=== PATIENT | female | born 1930 | race Caucasian/White ===

== ENCOUNTER 2018-04-17 08:41 | Inpatient (IN) | payer MEDICARE ==
[2018-04-17] MEDS ORDERED: SODIUM CHLORIDE 0.9% 500 ML IV ONE ×2 (09:23→19:12)
--- NOTE | 2018-04-17 09:26 | ED ---
General Adult HPI - General Chief complaint: Headache Stated complaint: nausea, headache, not acting herself Time Seen by Provider: 04/17/18 09:00 Source: patient, family, RN notes reviewed Mode of arrival: wheelchair Limitations: no limitations - History of Present Illness Initial comments: This is an 88-year-old female presents emergency Department with family for concerns of altered mental status, urinary incontinence and diarrhea. Patient does have some underlying dementia has been declining at home patient was found still in bed this morning which is out of the usual for she was incontinent of her urine and complaint of headache and nausea. Patient does have ongoing incontinence but seems to be worsened usual. They did state that she had a urinary tract infection a few weeks ago but she did not take antibiotics as directed. There's been no reported fevers no chills. Patient sees Dr. Alford and Dr. Cunningham neurologist. Family is concerned that she cannot take care of herself at home. complaint of frontal headache was given aspirin which has improved her symptoms. She states her nausea has resolved. Patient's been having ongoing diarrhea not addressed by PCP. Patient reports right sided rib pain after a fall. - Related Data Home Medications Medication Instructions Recorded Confirmed Ciprofloxacin HCl [Cipro] 500 mg PO Q12HR 04/17/18 04/17/18 Verapamil HCl [Verapamil ER] 240 mg PO DAILY 04/17/18 04/17/18 Allergies Allergy/AdvReac Type Severity Reaction Status Date / Time No Known Allergies Allergy Verified 04/17/18 09:35 Review of Systems ROS Statement: Those systems with pertinent positive or pertinent negative responses have been documented in the HPI. ROS Other: All systems not noted in ROS Statement are negative. Past Medical History Past Medical History: Hypertension History of Any Multi-Drug Resistant Organisms: None Reported Past Surgical History: No Surgical Hx Reported Past Psychological History: No Psychological Hx Reported Smoking Status: Never smoker Past Alcohol Use History: None Reported Past Drug Use History: None Reported General Exam Limitations: no limitations General appearance: alert, in no apparent distress Head exam: Present: atraumatic, normocephalic, normal inspection Eye exam: Present: normal appearance, PERRL, EOMI. Absent: scleral icterus, conjunctival injection, periorbital swelling ENT exam: Present: normal exam, normal oropharynx, mucous membranes moist Neck exam: Present: normal inspection, full ROM. Absent: tenderness, meningismus, lymphadenopathy Respiratory exam: Present: normal lung sounds bilaterally, chest wall tenderness. Absent: respiratory distress, wheezes, rales, rhonchi, stridor Cardiovascular Exam: Present: regular rate, normal rhythm, normal heart sounds. Absent: systolic murmur, diastolic murmur, rubs, gallop, clicks GI/Abdominal exam: Present: soft, normal bowel sounds. Absent: distended, tenderness, guarding, rebound, rigid Extremities exam: Present: normal inspection, full ROM, normal capillary refill. Absent: tenderness, pedal edema, joint swelling, calf tenderness Back exam: Present: full ROM, tenderness Neurological exam: Present: alert, oriented X3, CN II-XII intact, reflexes normal. Absent: motor sensory deficit Skin exam: Present: warm, dry, intact, normal color. Absent: rash Course Vital Signs 04/17/18 04/17/18 08:44 11:38 Temperature 97.5 F L Pulse Rate 106 H 88 Respiratory 16 18 Rate Blood Pressure 128/87 176/121 O2 Sat by Pulse 95 95 Oximetry EKG Findings - EKG Comments: EKG Findings:: EKG performed at 10:20 normal sinus rhythm with a rate of 87 OK 158 QRS 78 QT/QTC 400/481 Medical Decision Making - Medical Decision Making 88-year-old female presented for weakness Salter mental status. Patient has a history of dementia. Patiently admitted for cardiac enzymes, possible [facility]. - Lab Data Result diagrams: 04/17/18 09:39 04/17/18 09:39 Lab Results 04/17/18 04/17/18 04/17/18 Range/Units 09:39 09:39 09:39 WBC (3.8-10.6) k/uL RBC (3.80-5.40) m/uL Hgb (11.4-16.0) gm/dL Hct (34.0-46.0) % MCV (80.0-100.0) fL MCH (25.0-35.0) pg MCHC (31.0-37.0) g/dL RDW (11.5-15.5) % Plt Count (150-450) k/uL Neutrophils % % Lymphocytes % % Monocytes % % Eosinophils % % Basophils % % Neutrophils # (1.3-7.7) k/uL Lymphocytes # (1.0-4.8) k/uL Monocytes # (0-1.0) k/uL Eosinophils # (0-0.7) k/uL Basophils # (0-0.2) k/uL Sodium 145 (137-145) mmol/L Potassium 4.1 (3.5-5.1) mmol/L Chloride 106 (98-107) mmol/L Carbon Dioxide 22 (22-30) mmol/L Anion Gap 17 mmol/L BUN 13 (7-17) mg/dL Creatinine 0.89 (0.52-1.04) mg/dL Est GFR (CKD-EPI)AfAm 67 (>60 ml/min/1.73 sqM) Est GFR (CKD-EPI)NonAf 58 (>60 ml/min/1.73 sqM) Glucose 117 H (74-99) mg/dL Plasma Lactic Acid Deshaun 1.5 (0.7-2.0) mmol/L Calcium 9.5 (8.4-10.2) mg/dL Magnesium 1.8 (1.6-2.3) mg/dL Total Bilirubin 1.0 (0.2-1.3) mg/dL AST 30 (14-36) U/L ALT 21 (9-52) U/L Alkaline Phosphatase 69 (38-126) U/L Troponin I 0.235 H* (0.000-0.034) ng/mL Total Protein 6.9 (6.3-8.2) g/dL Albumin 4.2 (3.5-5.0) g/dL Lipase 55 (23-300) U/L Urine Color Urine Appearance (Clear) Urine pH (5.0-8.0) Ur Specific Stevens (1.001-1.035) Urine Protein (Negative) Urine Glucose (UA) (Negative) Urine Ketones (Negative) Urine Blood (Negative) Urine Nitrite (Negative) Urine Bilirubin (Negative) Urine Urobilinogen (<2.0) mg/dL Ur Leukocyte Esterase (Negative) Urine RBC (0-5) /hpf Urine WBC (0-5) /hpf Ur Squamous Epith Cells (0-4) /hpf Urine Mucus (None) /hpf 04/17/18 04/17/18 Range/Units 09:39 10:56 WBC 7.9 (3.8-10.6) k/uL RBC 5.84 H (3.80-5.40) m/uL Hgb 15.8 (11.4-16.0) gm/dL Hct 48.4 H (34.0-46.0) % MCV 82.9 (80.0-100.0) fL MCH 27.1 (25.0-35.0) pg MCHC 32.7 (31.0-37.0) g/dL RDW 14.7 (11.5-15.5) % Plt Count 212 (150-450) k/uL Neutrophils % 78 % Lymphocytes % 15 % Monocytes % 5 % Eosinophils % 1 % Basophils % 0 % Neutrophils # 6.2 (1.3-7.7) k/uL Lymphocytes # 1.2 (1.0-4.8) k/uL Monocytes # 0.4 (0-1.0) k/uL Eosinophils # 0.1 (0-0.7) k/uL Basophils # 0.0 (0-0.2) k/uL Sodium (137-145) mmol/L Potassium (3.5-5.1) mmol/L Chloride (98-107) mmol/L Carbon Dioxide (22-30) mmol/L Anion Gap mmol/L BUN (7-17) mg/dL Creatinine (0.52-1.04) mg/dL Est GFR (CKD-EPI)AfAm (>60 ml/min/1.73 sqM) Est GFR (CKD-EPI)NonAf (>60 ml/min/1.73 sqM) Glucose (74-99) mg/dL Plasma Lactic Acid Deshaun (0.7-2.0) mmol/L Calcium (8.4-10.2) mg/dL Magnesium (1.6-2.3) mg/dL Total Bilirubin (0.2-1.3) mg/dL AST (14-36) U/L ALT (9-52) U/L Alkaline Phosphatase (38-126) U/L Troponin I (0.000-0.034) ng/mL Total Protein (6.3-8.2) g/dL Albumin (3.5-5.0) g/dL Lipase (23-300) U/L Urine Color Yellow Urine Appearance Clear (Clear) Urine pH 6.5 (5.0-8.0) Ur Specific Stevens 1.011 (1.001-1.035) Urine Protein 1+ H (Negative) Urine Glucose (UA) Negative (Negative) Urine Ketones Trace H (Negative) Urine Blood Negative (Negative) Urine Nitrite Negative (Negative) Urine Bilirubin Negative (Negative) Urine Urobilinogen <2.0 (<2.0) mg/dL Ur Leukocyte Esterase Negative (Negative) Urine RBC <1 (0-5) /hpf Urine WBC 1 (0-5) /hpf Ur Squamous Epith Cells <1 (0-4) /hpf Urine Mucus Rare H (None) /hpf Disposition Clinical Impression: Elevated troponin, Altered mental status, Weakness, Diarrhea, Dementia Disposition: ADMITTED IP TO THIS HOSP Condition: Stable Referrals: Rico Alford MD [Primary Care Provider] - 1-2 days
[2018-04-17 09:57] LABS: Basophils % (A) 0 %; Eosinophils # (A) 0.1 k/uL (0-0.7); Eosinophils % (A) 1 %; HCT 48.4 % (34.0-46.0); HGB 15.8 gm/dL (11.4-16.0); Lymphocytes # (A) 1.2 k/uL (1.0-4.8); Lymphocytes % (A) 15 %; MCH 27.1 pg (25.0-35.0); MCHC 32.7 g/dL (31.0-37.0); MCV 82.9 fL (80.0-100.0); Mean Platelet Volume 9.6; Monocytes # (A) 0.4 k/uL (0-1.0); Monocytes % (A) 5 %; Neutrophils # (A) 6.2 k/uL (1.3-7.7); Neutrophils % (A) 78 %; Platelet Count 212 k/uL (150-450); RBC 5.84 m/uL (3.80-5.40); RDW 14.7 % (11.5-15.5); WBC 7.9 k/uL (3.8-10.6)
[2018-04-17 10:08] LABS: Albumin 4.2 g/dL (3.5-5.0); Calcium 9.5 mg/dL (8.4-10.2); Magnesium 1.8 mg/dL (1.6-2.3); Total Protein 6.9 g/dL (6.3-8.2)
[2018-04-17 10:12] LABS: Potassium 4.1 mmol/L (3.5-5.1)
--- NOTE | 2018-04-17 10:30 | XR ---
EXAMINATION TYPE: XR chest 2V DATE OF EXAM: 04/17/2018 COMPARISON: 03/11/2012 INDICATION: Cough, pain TECHNIQUE: Frontal and lateral views of the chest are obtained. FINDINGS: The heart size is normal. The pulmonary vasculature is normal. There may be a posterior right upper lung density. This could be summation density with overlying rib s. Consider additional evaluation with CT with the patient is stable. No suspicious infiltrates are o therwise identified.. IMPRESSION: 1. Acute pulmonary process not radiographically apparent. 2. There may be a posterior medial right upper lobe nodule. CT chest is recommended when the patient is stable.
--- NOTE | 2018-04-17 10:38 | CT ---
EXAMINATION TYPE: CT brain wo con DATE OF EXAM: 04/17/2018 COMPARISON: NONE HISTORY: Weakness and generalized pain CT DLP: 1144.7 mGycm Automated exposure control for dose reduction was used. TECHNIQUE: CT scan of the head is performed without contrast. FINDINGS: There is no acute intracranial hemorrhage or midline shift identified. There is diffuse v entricular and sulcal prominence consistent with diffuse age-related cerebral atrophy. There is low- attenuation in the periventricular white matter consistent with chronic small vessel ischemic change. There are dystrophic calcifications within the basal ganglia. Old lacunar injury seen of the anterio r limb of the right internal capsule and of the right lentiform nucleus. Atherosclerosis is noted at the intracranial vasculature. The globes are intact and the visualized sinuses are clear. Scleral c alcifications are seen bilaterally. IMPRESSION: No acute intracranial process. Extensive confluent white matter changes and age-related cerebral volume loss.
[2018-04-17 11:16] LABS: Appearance,Urine Clear (Clear); Bilirubin,Urine Negative (Negative); Blood,Urine Negative (Negative); Color,Urine Yellow; Glucose,Urine (UA) Negative (Negative); Ketones,Urine Trace (Negative); Leukocyte Esterase,Urine Negative (Negative); Mucus,Urine Rare /hpf; Nitrite,Urine Negative (Negative); PH, Urine 6.5 (5.0-8.0); Protein,Urine 1+ (Negative); RBC,Urine <1 /hpf (0-5); Specific Gravity,Urine 1.011 (1.001-1.035); Squamous Epithelial Cell,Urine <1 /hpf (0-4); Urobilinogen,Urine <2.0 mg/dL (<2.0); WBC,Urine 1 /hpf (0-5)
[2018-04-17] MEDS ORDERED: cloNIDine HCL 0.1 MG TAB PO STA (11:27)
[2018-04-17] MEDS ORDERED: ONDANSETRON 4 MG/2 ML VIAL IVP STA (11:43)
[2018-04-17] MEDS ORDERED: NITROGLYCERIN SL TABS 0.4 MG TAB SUBLINGUAL PRN (11:43)
[2018-04-17] MEDS ORDERED: KETOROLAC 30 MG/ML 1 ML VIAL IVP STA (11:43)
--- NOTE | 2018-04-17 15:23 | P.HPIM ---
History of Present Illness this is a pleasant 88 years old female with past medical history of hypertension , urinary incontinence, recent UTI, cataract, hyperlipidemia, and dementia, patient brought to the emergency room by the family for concerning altered mental status, with some diarrhea. Patient was on Cipro recently for UTI. Bed comfortable fully awake and can answer questions regarding her health. Patient states "I feels sick to my stomach but I don't have pain" associated with nausea but no vomiting. Patient denies chest pain, dyspnea. No abdominal pain , patient herself denies diarrhea and states she didn't have any bowel movement today. As per documentation family is concerned that they cannot take care of herself at home and he wanted to talk to social worker assistant for other options In the ED patient was found to have positive troponin 0.235, creatinine 0.89, GFR is 58, WBC 7.9, hemoglobin 15.8, UA is negative for infection, chest x-ray is negative for acute pulmonary process, however there is suspicion of right upper lobe nodule on CT of the head shows negative for acute intracranial process with extensive age-related volume loss, EKG shows sinus rhythm at 87 bpm with no significant ST-T abnormality, and LVH Review of Systems CONSTITUTIONAL: No fever, no malaise, no fatigue. HEENT: No recent visual problems or hearing problems. Denied any sore throat. CARDIOVASCULAR: No orthopnea, PND, no palpitations, no syncope. PULMONARY: No shortness of breath, no cough, no hemoptysis. GASTROINTESTINAL: No diarrhea, no nausea, no vomiting, no abdominal pain. Normoactive bowel sounds. NEUROLOGICAL: No headaches, no weakness, no numbness. HEMATOLOGICAL: Denies any bleeding or petechiae. GENITOURINARY: Denies any burning micturition, frequency, or urgency. MUSCULOSKELETAL/RHEUMATOLOGICAL: Denies any joint pain, swelling, or any muscle pain. ENDOCRINE: Denies any polyuria or polydipsia. 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 History of Any Multi-Drug Resistant Organisms: None Reported Past Surgical History: No Surgical Hx Reported Additional Past Surgical History / Comment(s): One eye cataract removal (unsure laterality), exploratory laparotomy for teratoma tumor. Past Anesthesia/Blood Transfusion Reactions: Postoperative Nausea & Vomiting ( PONV) Smoking Status: Never smoker - Past Family History Father History Unknown: Yes Mother Family Medical History: Congestive Heart Failure (CHF), Diabetes Mellitus Medications and Allergies Home Medications Medication Instructions Recorded Confirmed Type Ciprofloxacin HCl [Cipro] 500 mg PO Q12HR 04/17/18 04/17/18 History Verapamil HCl [Verapamil ER] 240 mg PO DAILY 04/17/18 04/17/18 History Allergies Allergy/AdvReac Type Severity Reaction Status Date / Time No Known Allergies Allergy Verified 04/17/18 09:35 Physical Exam Vitals: Vital Signs Temp Pulse Resp BP Pulse Ox 04/17/18 13:12 83 18 179/99 91 L 04/17/18 12:35 85 18 188/109 92 L 04/17/18 11:38 88 18 176/121 95 04/17/18 09:00 86 18 197/108 98 04/17/18 08:44 97.5 F L 106 H 16 128/87 95 Intake and Output 04/16/18 04/17/18 04/17/18 22:59 06:59 14:59 Other: Weight 61.235 kg -GENERAL: The patient is alert and oriented x2 to place and person, when asked where are you now she replaced and in [facility] emergency room. And when I ask her about the date she stated I don't paid attention to dates but she thought it was 1980. She knew the name of the president, not in any acute distress. Well developed, well nourished. slurred speach. HEENT: Pupils are round and equally reacting to light. EOMI. No scleral icterus. No conjunctival pallor. Normocephalic, atraumatic. No pharyngeal erythema. No thyromegaly. CARDIOVASCULAR: S1 and S2 present. No murmurs, rubs, or gallops. PULMONARY: Chest is clear to auscultation, no wheezing or crackles. ABDOMEN: Soft, nontender, nondistended, normoactive bowel sounds. No palpable organomegaly. MUSCULOSKELETAL: No joint swelling or deformity. -EXTREMITIES: No cyanosis, clubbing, or pedal edema. chronic left hemiplagia . her left foot moves in full ROM actively and passively NEUROLOGICAL: Gross neurological examination did not reveal any focal deficits. SKIN: No rashes. Results CBC & Chem 7: 04/17/18 09:39 04/17/18 09:39 Labs: Abnormal Lab Results - Last 24 Hours (Table) 04/17/18 04/17/18 04/17/18 Range/Units 09:39 09:39 09:39 RBC 5.84 H (3.80-5.40) m/uL Hct 48.4 H (34.0-46.0) % Glucose 117 H (74-99) mg/dL Troponin I 0.235 H* (0.000-0.034) ng/mL Urine Protein (Negative) Urine Ketones (Negative) Urine Mucus (None) /hpf 04/17/18 Range/Units 10:56 RBC (3.80-5.40) m/uL Hct (34.0-46.0) % Glucose (74-99) mg/dL Troponin I (0.000-0.034) ng/mL Urine Protein 1+ H (Negative) Urine Ketones Trace H (Negative) Urine Mucus Rare H (None) /hpf Thrombosis Risk Factor Assmnt - Choose All That Apply Any of the Below Risk Factors Present?: Yes Other Risk Factors: Yes Each Risk Factor Represents 3 Points: Age 75 years or older Other congenital or acquired thrombophilia - If yes, enter type in comment: No Thrombosis Risk Factor Assessment Total Risk Factor Score: 3 Thrombosis Risk Factor Assessment Level: Moderate Risk Assessment and Plan Plan: -Altered mental status,on the top of her dementia. It could be multifactorial related to her dementia, positive troponin, recent infection. -Positive troponin, associated with stomach upset. patient is already on aspirin. We'll check echocardiogram. Cardiology consult is called -Possible diarrhea, she has recent use of antibiotics Cipro. Check for C. diff -Recent UTI, UA is negative for infection. It looks resolved -Pulmonary nodules, follow-up as an outpatient DVT prophylaxis, heparin GI prophylaxis Pepcid Prognosis is guarded given the complex medical comorbidities and advanced age
[2018-04-17 16:20] LABS: Creatine Kinase MB 1.9 ng/mL (0.0-2.4)
[2018-04-17 16:27] LABS: Troponin I 0.222 ng/mL (0.000-0.034)
[2018-04-17] MEDS ORDERED: LABETALOL 200 MG TAB PO STA (17:57)
[2018-04-17] MEDS: HEPARIN SODIUM,PORCINE 5,000 UNIT/ML 1 ML VIAL SQ SCH (20:37)
[2018-04-17 20:51] LABS: Calcium 8.6 mg/dL (8.4-10.2); Magnesium 1.7 mg/dL (1.6-2.3); Potassium 3.3 mmol/L (3.5-5.1)
[2018-04-17] MEDS ORDERED: FAMOTIDINE 20 MG/2 ML VIAL IV SCH (21:00)
[2018-04-17 21:03] LABS: Creatine Kinase MB 1.3 ng/mL (0.0-2.4)
[2018-04-17 21:10] LABS: Troponin I 0.224 ng/mL (0.000-0.034)
[2018-04-18 06:20] LABS: Basophils % (A) 1 %; Eosinophils # (A) 0.1 k/uL (0-0.7); Eosinophils % (A) 1 %; HCT 37.8 % (34.0-46.0); HGB 12.4 gm/dL (11.4-16.0); Lymphocytes # (A) 1.3 k/uL (1.0-4.8); Lymphocytes % (A) 26 %; MCH 27.4 pg (25.0-35.0); MCHC 32.8 g/dL (31.0-37.0); MCV 83.7 fL (80.0-100.0); Mean Platelet Volume 9.1; Monocytes # (A) 0.3 k/uL (0-1.0); Monocytes % (A) 7 %; Neutrophils # (A) 3.1 k/uL (1.3-7.7); Neutrophils % (A) 63 %; Platelet Count 175 k/uL (150-450); RBC 4.51 m/uL (3.80-5.40); RDW 14.8 % (11.5-15.5); WBC 4.8 k/uL (3.8-10.6)
[2018-04-18 06:22] LABS: Albumin 2.9 g/dL (3.5-5.0); Bilirubin, Delta 0.1 mg/dL (0.0-0.2); Bilirubin,Unconjugated 0.3 mg/dL (0.0-1.1); Calcium 8.9 mg/dL (8.4-10.2); Potassium 3.7 mmol/L (3.5-5.1); Total Bilirubin 0.4 mg/dL (0.2-1.3); Total Protein 4.9 g/dL (6.3-8.2)
[2018-04-18] MEDS: ASPIRIN 325 MG TAB PO SCH (08:06)
[2018-04-18] MEDS: HEPARIN SODIUM,PORCINE 5,000 UNIT/ML 1 ML VIAL SQ SCH ×2 (08:06→20:57)
--- NOTE | 2018-04-18 08:09 | CONS ---
CONSULTATION CHIEF COMPLAINT: 1. Elevated troponin. 2. Cardiac arrhythmia. Seema is an 88-year-old lady with history of hypertension, urinary incontinence, dyslipidemia, and apparently dementia who was brought into hospital by family as they found her kept unwell home. She apparently has altered mental status and family is looking for placement. Her troponins are mildly elevated at 0.2 and her creatinine which was normal on admission had become elevated at 1.3. The patient was in sinus rhythm with sinus tachycardia when she first came. Her blood pressures were elevated. She was given 200 mg of intravenous labetalol following which she became hypotensive and somewhat bradycardic. Following that, she received fluid bolus and the bradycardia has resolved. She has an EKG that shows atrial fibrillation, but it was transient and resolved on its own and all her rhythm strips show that she is in sinus rhythm. At the time of my evaluation this morning, she appears comfortable at rest. She is having a meaningful conversation. Denies chest pain or difficulty in breathing. PAST MEDICAL HISTORY: Past medical history is significant for hypertension, dyslipidemia, dementia. MEDICATIONS: Medications at home included verapamil ER 240, ciprofloxacin. ALLERGIES: Allergies are as charted. FAMILY HISTORY: Negative for premature coronary artery disease. SOCIAL HISTORY: Has dementia, is not able to take care of herself at home. REVIEW OF SYSTEMS: HEENT is significant for confusion. CONSTITUTIONAL: Negative for fever, malaise, fatigue. CARDIOVASCULAR: Negative. RESPIRATORY: Negative. GI: Significant for diarrhea. NEUROLOGICAL: Negative. HEMATOLOGICAL: Negative. GENITOURINARY: Significant for urinary incontinence. MUSCULOSKELETAL: Significant for joint pains. ENDOCRINE: Negative. PHYSICAL EXAMINATION: On exam she is comfortable at rest. Afebrile. Heart rate is 57 beats per minute. Blood pressure is 160/90, respiratory rate is 18, O2 sat is 92% on room air. There is no jugular venous distention. Carotid upstroke is diminished. There is no bruit. Chest exam reveals diminished air entry at the bases. Heart exam reveals first and second heart sounds and a systolic murmur at the apex. Abdomen is soft. Exam of extremities did not reveal any edema. Peripheral pulses are felt. LABS: Labs show that her creatinine elevated at 1.3. Troponins are at 0.2, 0.2 and 0.2. Hemoglobin is 12.4. EKGs: Admission EKG showed sinus rhythm with PACs, all the rhythm strips show that she is in sinus rhythm. She had one EKG where there appears what appears like junctional rhythm and this happened around the same time that she received a large dose of intravenous labetalol. ASSESSMENT: 1. Uncontrolled hypertension. 2. Elevated troponin. 3. Dementia. PLAN: I will obtain a 2-D echo on her to evaluate her LV function. Stop the Calan SR that she is on. Put her on amlodipine 10 mg daily for blood pressure control. If necessary, if the creatinine is stable, we may consider AL inhibitors. The elevated troponin is of unclear clinical significance and does not require further evaluation at this time. We will continue to watch her on telemetry. If she has any documented episodes of atrial fibrillation, we will consider anticoagulation. BRYANNA / JUSTINN: [id number] /
--- NOTE | 2018-04-18 10:47 | P.PN ---
Subjective this is a pleasant 88 years old female with past medical history of hypertension , urinary incontinence, recent UTI, cataract, hyperlipidemia, and dementia, patient brought to the emergency room by the family for concerning altered mental status, with some diarrhea. Patient was on Cipro recently for UTI. Bed comfortable fully awake and can answer questions regarding her health. Patient states "I feels sick to my stomach but I don't have pain" associated with nausea but no vomiting. Patient denies chest pain, dyspnea. No abdominal pain , patient herself denies diarrhea and states she didn't have any bowel movement today. As per documentation family is concerned that they cannot take care of herself at home and he wanted to talk to social welfare administrator for other options In the ED patient was found to have positive troponin 0.235, creatinine 0.89, GFR is 58, WBC 7.9, hemoglobin 15.8, UA is negative for infection, chest x-ray is negative for acute pulmonary process, however there is suspicion of right upper lobe nodule on CT of the head shows negative for acute intracranial process with extensive age-related volume loss, EKG shows sinus rhythm at 87 bpm with no significant ST-T abnormality, and LVH Review of Systems Objective - Vital Signs Vital signs: Vital Signs Temp 97.2 F L 04/18/18 07:55 Pulse 55 L 04/18/18 08:00 Resp 16 04/18/18 07:55 BP 166/79 04/18/18 07:55 Pulse Ox 92 L 04/18/18 07:55 Intake & Output 04/17/18 04/18/18 04/18/18 18:59 06:59 18:59 Weight 61.235 kg 63 kg Other: Voiding Method Bedside Commode Bedside Commode Toilet Diaper Diaper Bedside Commode Diaper # Voids 0 1 # Bowel Movements 1 - Exam -GENERAL: The patient is alert and oriented x2 to place and person, when asked where are you now she replaced and in [facility] emergency room. And when I ask her about the date she stated I don't paid attention to dates but she thought it was 1980. She knew the name of the president, not in any acute distress. Well developed, well nourished. slurred speach. HEENT: Pupils are round and equally reacting to light. EOMI. No scleral icterus. No conjunctival pallor. Normocephalic, atraumatic. No pharyngeal erythema. No thyromegaly. CARDIOVASCULAR: S1 and S2 present. No murmurs, rubs, or gallops. PULMONARY: Chest is clear to auscultation, no wheezing or crackles. ABDOMEN: Soft, nontender, nondistended, normoactive bowel sounds. No palpable organomegaly. MUSCULOSKELETAL: No joint swelling or deformity. -EXTREMITIES: No cyanosis, clubbing, or pedal edema. chronic left hemiplagia . her left foot moves in full ROM actively and passively NEUROLOGICAL: Gross neurological examination did not reveal any focal deficits. - Labs CBC & Chem 7: 04/18/18 05:38 04/18/18 05:38 Labs: Abnormal Lab Results - Last 24 Hours (Table) 04/17/18 04/17/18 04/17/18 Range/Units 09:39 10:56 15:36 Potassium (3.5-5.1) mmol/L Creatinine (0.52-1.04) mg/dL Glucose (74-99) mg/dL Troponin I 0.235 H* 0.222 H* (0.000-0.034) ng/mL Total Protein (6.3-8.2) g/dL Albumin (3.5-5.0) g/dL HDL Cholesterol (40-60) mg/dL Urine Protein 1+ H (Negative) Urine Ketones Trace H (Negative) Urine Mucus Rare H (None) /hpf 04/17/18 04/17/18 04/18/18 Range/Units 20:19 20:19 05:38 Potassium 3.3 L (3.5-5.1) mmol/L Creatinine 1.10 H 1.30 H (0.52-1.04) mg/dL Glucose 120 H (74-99) mg/dL Troponin I 0.224 H* (0.000-0.034) ng/mL Total Protein 4.9 L (6.3-8.2) g/dL Albumin 2.9 L (3.5-5.0) g/dL HDL Cholesterol 39 L (40-60) mg/dL Urine Protein (Negative) Urine Ketones (Negative) Urine Mucus (None) /hpf Microbiology - Last 24 Hours (Table) 04/17/18 10:56 Urine Culture - Preliminary Urine,Catheterized Assessment and Plan Plan: -Altered mental status,on the top of her dementia.it looks mild. It could be multifactorial related to her dementia, positive troponin, recent infection. -Positive troponin, associated with stomach upset. patient is already on aspirin. We'll check echocardiogram. Cardiology consult is appreciated and they recommend echo and telemetry. nitroglycerin topical. c/w tele -Possible diarrhea, she has recent use of antibiotics Cipro. resolved . -Recent UTI, UA is negative for infection. It looks resolved -Pulmonary nodules, follow-up as an outpatient. call pulmonary consult -HTN on norvasc 10 mg , add nitroglycerin topical -FROILAN: trending up cr 1.1 to 1.3, pt is on iv fluids. pt had episode of hypotension, pt complaining from urine retention with h/o urine incontinence , however she is able to pee this morning, C/w bladder scan . check US of renal system: pending DVT prophylaxis, heparin GI prophylaxis Pepcid PT/OT pending Prognosis is guarded given the complex medical comorbidities and advanced age
[2018-04-18] MEDS ORDERED: DEXTROSE 5%-0.45% NACL 1,000 ML IV SCH (11:00)
[2018-04-18] MEDS: NITROGLYCERIN OINT 1 INCH/GM PACKET TOPICAL SCH ×3 (11:38→23:36)
--- NOTE | 2018-04-18 11:51 | ECHOF ---
Referral Reason:-positive troponin MEASUREMENTS -------- HEIGHT: 167.6 cm WEIGHT: 61.2 kg BP: 158/93 IVSd: 1.0 cm (0.6 - 1.1) LVIDd: 3.9 cm (3.9 - 5.3) LVPWd: 1.0 cm (0.6 - 1.1) IVSs: 1.2 cm LVIDs: 2.3 cm LVPWs: 1.2 cm LAESV Index (A-L): 22.88 ml/m Ao Diam: 3.9 cm (2.0 - 3.7) AV Cusp: 1.8 cm (1.5 - 2.6) LA Diam: 2.5 cm (2.7 - 3.8) MV EXCURSION: 11.388 mm (> 18.000) MV EF SLOPE: 36 mm/s (70 - 150) EPSS: 0.9 cm MV E Chacho: 0.52 m/s MV DecT: 462 ms MV A [place]: 1.06 m/s MV E/A Ratio: 0.49 RAP: 5.00 mmHg RVSP: 24.21 mmHg FINDINGS -------- Sinus rhythm. This was a technically adequate study. The left ventricular size is normal. There is mild concentric left ventricular hypertrophy. Overa ll left ventricular systolic function is normal with, an EF between 55 - 60 %. The right ventricle is normal in size and function. Normal LA size by volume 22+/-6 ml/m2. The right atrium is normal in size. There is mild aortic valve sclerosis. There is no evidence of aortic regurgitation. There is no e vidence of aortic stenosis. The mitral valve leaflets are mildly thickened. There is trace mitral regurgitation. Trace tricuspid regurgitation present. Right ventricular systolic pressure is normal at < 35 mmHg. There is no evidence of pulmonary hypertension. Trace/mild (physiologic) pulmonic regurgitation. The aortic root size is borderline dilated to 3.7 cm. IVC Not well visulized. There is no pericardial effusion. CONCLUSIONS -------- 1. Sinus rhythm. 2. This was a technically adequate study. 3. The left ventricular size is normal. 4. There is mild concentric left ventricular hypertrophy. 5. Overall left ventricular systolic function is normal with, an EF between 55 - 60 %. 6. Normal LA size by volume 22+/-6 ml/m2. 7. There is mild aortic valve sclerosis. 8. The mitral valve leaflets are mildly thickened. 9. There is trace mitral regurgitation. 10. Trace tricuspid regurgitation present. 11. Right ventricular systolic pressure is normal at < 35 mmHg. 12. There is no evidence of pulmonary hypertension. 13. Trace/mild (physiologic) pulmonic regurgitation. 14. The aortic root size is borderline dilated to 3.7 cm. 15. IVC Not well visulized. 16. There is no pericardial effusion. BOMB LOADER: Avi Stark RDCS
--- NOTE | 2018-04-18 12:15 | US ---
EXAMINATION TYPE: US kidneys/renal and bladder DATE OF EXAM: 04/18/2018 COMPARISON: NONE CLINICAL HISTORY: up creatinine and urine retention . EXAM MEASUREMENTS: Right Kidney: 10.6 x 4.9 x 4.8 cm Left Kidney: 7.5 x 3.7 x 3.0 cm Right Kidney: 2 cysts noted, 1.) 2.0 x 2.0 x 2.1cm, 2.) 5.5 x 4.6 x 5.4xm Left Kidney: 3 cysts noted, largest 2 measuring 1.)3.1 x 3.2 x 3.0cm, 2.) 2.4 x 2.8 x 2.9cm Bladder: wnl There is no evidence for hydronephrosis at this point in time. No nephrolithiasis is seen. The urina ry bladder is anechoic. Bilateral ureteral jets are seen. IMPRESSION: 1. No hydronephrosis or nephrolithiasis. 2. Bilateral simple appearing cortical renal cysts.
--- NOTE | 2018-04-18 12:33 | P.CNPUL ---
History of Present Illness Consult date: 04/18/18 Requesting physician: Collins E Tanmay Reason for consult: abnormal CXR/CT (Right upper lobe low density) Chief complaint: Altered mental status History of present illness: This is a 88-year-old female patient who follows with Dr. Alford as her primary care physician. She has a history of hypertension, dementia, urinary incontinence she has had recent urinary tract infections treated with Cipro in the outpatient setting. Yesterday her family found her still in bed which was unusual for her she was also incontinent of urine and complaining of a headache and nausea. Computed tomography scan of the brain revealed no acute intracranial process. Urine culture reveals no growth. White count 4.8. Hemoglobin 12.4. Creatinine 1.30. Troponin 0.235, 0.222, 0.224. Echocardiogram reveals preserved left ventricular systolic function ejection fraction 55-60%. Chest x-ray revealed no acute pulmonary process however there was a noted right upper lobe density/nodule. We are consulted for the same. The patient is a lifelong nonsmoker. No pulmonary history. She is maintaining good O2 saturations in the 90s on room air. 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 History of Any Multi-Drug Resistant Organisms: None Reported Past Surgical History: No Surgical Hx Reported Additional Past Surgical History / Comment(s): One eye cataract removal (unsure laterality), exploratory laparotomy for teratoma tumor. Past Anesthesia/Blood Transfusion Reactions: Postoperative Nausea & Vomiting ( PONV) Smoking Status: Never smoker - Past Family History Father History Unknown: Yes Mother Family Medical History: Congestive Heart Failure (CHF), Diabetes Mellitus Medications and Allergies Home Medications Medication Instructions Recorded Confirmed Type Ciprofloxacin HCl [Cipro] 500 mg PO Q12HR 04/17/18 04/17/18 History Verapamil HCl [Verapamil ER] 240 mg PO DAILY 04/17/18 04/17/18 History Allergies Allergy/AdvReac Type Severity Reaction Status Date / Time No Known Allergies Allergy Verified 04/17/18 09:35 Physical Exam Vitals: Vital Signs Temp Pulse Pulse Resp BP BP Pulse Ox 04/18/18 11:29 97.8 F 54 L 16 188/81 92 L 04/18/18 08:00 55 L 04/18/18 07:55 97.2 F L 55 L 16 166/79 92 L 04/18/18 04:00 97.4 F L 57 L 14 161/91 92 L 04/18/18 00:00 97.7 F 52 L 16 110/67 93 L 04/17/18 20:00 97.8 F 52 L 14 97/62 92 L 04/17/18 17:31 78 04/17/18 17:12 78 18 185/92 92 L 04/17/18 16:58 85 18 94 L 04/17/18 16:17 76 18 161/88 94 L 04/17/18 15:22 84 18 158/93 176/94 93 L 04/17/18 13:12 83 18 179/99 91 L 04/17/18 12:35 85 18 188/109 92 L Intake and Output 04/17/18 04/18/18 04/18/18 22:59 06:59 14:59 Intake Total 118 Balance 118 Intake: Oral 118 Other: Voiding Method Bedside Commode Bedside Commode Toilet Diaper Diaper Bedside Commode Diaper # Voids 0 1 # Bowel Movements 1 Weight 63 kg GENERAL EXAM: Alert, oriented to person, comfortable in no apparent distress. HEAD: Normocephalic. EYES: Normal reaction of pupils, equal size. NOSE: Clear with pink turbinates. THROAT: No erythema or exudates. NECK: No masses, no JVD. CHEST: No chest wall deformity. LUNGS: Equal air entry with no crackles, wheeze, rhonchi or dullness. CVS: S1 and S2 normal with no audible murmur, regular rhythm. ABDOMEN: No hepatosplenomegaly, normal bowel sounds, no guarding or rigidity. SPINE: No scoliosis or deformity SKIN: No rashes CENTRAL NERVOUS SYSTEM: No focal deficits, tone is normal in all 4 extremities. EXTREMITIES: There is no peripheral edema. No clubbing, no cyanosis. Peripheral pulses are intact. Results - Laboratory Findings CBC and BMP: 04/18/18 05:38 04/18/18 05:38 Abnormal lab findings: Abnormal Labs 04/17/18 04/17/18 04/17/18 09:39 09:39 09:39 RBC 5.84 H Hct 48.4 H Potassium Creatinine Glucose 117 H Troponin I 0.235 H* Total Protein Albumin HDL Cholesterol Urine Protein Urine Ketones Urine Mucus 04/17/18 04/17/18 04/17/18 10:56 15:36 20:19 RBC Hct Potassium Creatinine Glucose Troponin I 0.222 H* 0.224 H* Total Protein Albumin HDL Cholesterol Urine Protein 1+ H Urine Ketones Trace H Urine Mucus Rare H 04/17/18 04/18/18 20:19 05:38 RBC Hct Potassium 3.3 L Creatinine 1.10 H 1.30 H Glucose 120 H Troponin I Total Protein 4.9 L Albumin 2.9 L HDL Cholesterol 39 L Urine Protein Urine Ketones Urine Mucus - Diagnostic Findings Chest x-ray: image reviewed Assessment and Plan Assessment: Impression: #1 Acute mental status of unclear etiology suspect some component of continued dementia. #2 Urinary incontinence with recent urinary tract infection treated with Cipro in the outpatient setting. Urinalysis shows resolving. #3 Right upper lobe pulmonary nodule. #4 Hypertension. #5 Troponin leak. Echocardiogram reveals preserved left ventricular systolic function. Plan: The patient was seen and evaluated by Dr. Phelan. Chest x-ray was reviewed. No plans for computed tomography scan of the chest or any further interventions. Based on the patient's age, dementia and other comorbidities would not benefit from any further pulmonary workup. She is asymptomatic and maintaining good O2 saturations in the 90s on room air. The plan upon discharge is extended care facility. I, the cosigning physician, performed a history & physical examination of the patient. Lungs sounds are clear. Maintaining good O2 saturations in the 90s on room air. I discussed the assessment and plan of care with my nurse practitioner, Tania Arroyo. I attest to the above note as dictated by her. Time with Patient: Greater than 30
[2018-04-18] MEDS ORDERED: LOSARTAN 25 MG TAB PO STA (15:07)
[2018-04-18] MEDS: DEXTROSE 5%-0.45% NACL 1,000 ML IV SCH (16:18)
[2018-04-18] MEDS: ONDANSETRON 4 MG/2 ML VIAL IVP PRN (16:59)
[2018-04-18] MEDS: amLODIPine 10 MG TAB PO SCH (20:56)
[2018-04-18] MEDS: FAMOTIDINE 20 MG TAB PO SCH (20:56)
[2018-04-19] MEDS: DEXTROSE 5%-0.45% NACL 1,000 ML IV SCH ×3 (04:49→21:02)
[2018-04-19] MEDS: ONDANSETRON 4 MG/2 ML VIAL IVP PRN (05:59)
[2018-04-19 06:38] LABS: Basophils % (A) 0 %; Eosinophils # (A) 0.1 k/uL (0-0.7); Eosinophils % (A) 1 %; HCT 42.6 % (34.0-46.0); Lymphocytes # (A) 1.5 k/uL (1.0-4.8); Lymphocytes % (A) 20 %; MCH 27.2 pg (25.0-35.0); MCHC 32.8 g/dL (31.0-37.0); MCV 82.9 fL (80.0-100.0); Mean Platelet Volume 9.5; Monocytes # (A) 0.5 k/uL (0-1.0); Monocytes % (A) 7 %; Neutrophils # (A) 5.4 k/uL (1.3-7.7); Neutrophils % (A) 71 %; Platelet Count 186 k/uL (150-450); RBC 5.13 m/uL (3.80-5.40); RDW 14.6 % (11.5-15.5); WBC 7.6 k/uL (3.8-10.6)
[2018-04-19 06:47] LABS: Calcium 9.3 mg/dL (8.4-10.2); Potassium 3.6 mmol/L (3.5-5.1)
[2018-04-19] MEDS: NITROGLYCERIN OINT 1 INCH/GM PACKET TOPICAL SCH ×2 (08:39→16:05)
[2018-04-19] MEDS: HEPARIN SODIUM,PORCINE 5,000 UNIT/ML 1 ML VIAL SQ SCH ×2 (08:39→20:01)
[2018-04-19] MEDS: ASPIRIN 325 MG TAB PO SCH (08:39)
[2018-04-19] MEDS: LOSARTAN 25 MG TAB PO SCH (08:39)
--- NOTE | 2018-04-19 11:17 | P.PN ---
Subjective Progress Note Date: 04/19/18 This is an 80-year-old female with history of hypertension, hyperlipidemia, dementia, who was admitted to the hospital because of mental status changes, patient is hoping for placement for her in the ECF facility. Troponins came back to be mildly elevated and for this reason a cardiology consultation has been requested yesterday patient also was given 200 mg of IV labetalol for hypertension, following that patient had become bradycardic and hypotensive. Patient also had an EKG performed which revealed transient atrial fibrillation, she's remained in normal sinus rhythm since then. This morning patient was seen and evaluated, blood pressure 126/70 with a heart rate in the 70s, all 3 troponins in the range of 0.2. Echocardiogram with Doppler study was performed which revealed a normal left ventricular systolic function. Objective - Vital Signs Vital signs: Vital Signs Temp 98.0 F 04/19/18 08:00 Pulse 75 04/19/18 08:00 Resp 16 04/19/18 08:00 BP 126/70 04/19/18 08:00 Pulse Ox 94 L 04/19/18 08:00 Intake & Output 04/18/18 04/19/18 04/19/18 18:59 06:59 18:59 Intake Total 554 800 Output Total 450 2150 Balance 104 -1350 Weight 63 kg 60.9 kg Intake: Intake, IV Titration 200 800 Amount Dextrose 5%-0.45% NaCl 1, 800 000 ml @ 100 mls/hr IV . Q10H MINOO Rx#:[id number] Dextrose 5%-0.45% NaCl 1, 200 000 ml @ 40 mls/hr IV . Q24H MINOO Rx#:[id number] Oral 354 Output: Urine 450 2150 Uretheral (Silverman) 450 450 Other: Voiding Method Toilet Indwelling Catheter Indwelling Catheter Bedside Commode Diaper # Voids 1 3 # Bowel Movements 1 1 - Exam PHYSICAL EXAMINATION: GENERAL: 88-year-old female in no apparent distress at the time of my examination HEENT: Head is atraumatic, normocephalic. Pupils equal, round. Sclera anicteric. Conjunctiva are clear. Mucous membranes of the mouth are moist. Neck is supple. There is no elevated jugular venous pressure.] bruit is heard. HEART EXAMINATION: Heart S1 and S2 systolic murmur is heard CHEST EXAMINATION: Lungs are clear with mild diminished air entry to the bases. ABDOMEN: Soft, nontender. Bowel sounds are heard. No organomegaly noted. EXTREMITIES: 2+ peripheral pulses with no evidence of peripheral edema and no calf tenderness noted. NEUROLOGIC patient is awake, alert and oriented -2. . - Labs CBC & Chem 7: 04/19/18 05:55 04/19/18 05:55 Labs: Abnormal Lab Results - Last 24 Hours (Table) 04/19/18 Range/Units 05:55 Glucose 130 H (74-99) mg/dL Microbiology - Last 24 Hours (Table) 04/17/18 10:56 Urine Culture - Final Urine,Catheterized Assessment and Plan Plan: Assessment and plan #1 uncontrolled hypertension #2 abnormal troponins, not consistent with acute coronary syndrome, no significant rise or fall pattern. Echo reveals normal left ventricular systolic function. #3 dementia Plan From cardiology's perspective, we'll recommend to continue the patient on her current medications. We will follow her along with you now on an as-needed basis only, please don't hesitate to call with any questions. DNP note has been reviewed, I agree with a documented findings and plan of care. Patient was seen and examined.
[2018-04-19 17:12] LABS: Glucose,Whole Blood 135 mg/dL (75-99)
[2018-04-19] MEDS ORDERED: ACETAMINOPHEN TAB 325 MG TAB PO PRN (18:25)
--- NOTE | 2018-04-19 19:34 | PN ---
PROGRESS NOTE DATE OF SERVICE: 04/19/2018 This 88-year-old woman with a past medical history of multiple medical problems, including dementia, was admitted with change in mental status. The patient also had a positive troponin. Patient also has some diarrhea. Thus far, the patient is being closely monitored. Patient also has gait dysfunction. Dr. Phelan and Cardiology are following the patient closely. Abdominal-bladder ultrasound was also done. No chest pain. No palpitations. No fever. EXAM: The patient is conscious, confused. Pulse 64, blood pressure 162/74, respirations 16, temperature 98.7, pulse ox 95% on room air. HEENT: Conjunctivae normal. NECK: No jugular venous distention. CARDIOVASCULAR: S1, S2 muffled. RESPIRATORY: Breath sounds diminished in the bases. A few scattered rhonchi. No crackles. ABDOMEN: Soft, nontender. LEGS: No edema. No swelling. NERVOUS SYSTEM: No focal deficits. LABS: WBC 7.7, hemoglobin is 14. Creatinine is 1. Other labs noted. ASSESSMENT: 1. Change in mental status, possible acute metabolic encephalopathy secondary to renal failure. 2. Dehydration, diarrhea with the increased creatinine, mild acute renal failure, present on admission with possible prerenal factors. 3. Positive troponin, indeterminate. 4. Diarrhea. 5. Recent urinary tract infection, currently negative for infection. 6. Pulmonary nodules. 7. Hypertension. 8. Acute kidney injury. RECOMMENDATIONS AND DISCUSSION: In this 88-year-old woman who presented with multiple complex medical issues, we will monitor the patient closely, continue the current medical management and symptomatic treatment. Continue with IV fluids. Continue with PT/OT evaluation and possible ECF rehab. Further recommendations to follow. MMODL / IJN: [id number] /
[2018-04-19] MEDS: FAMOTIDINE 20 MG TAB PO SCH (20:01)
[2018-04-19] MEDS: amLODIPine 10 MG TAB PO SCH (20:01)
[2018-04-20] MEDS: DEXTROSE 5%-0.45% NACL 1,000 ML IV SCH (06:22)
[2018-04-20 08:03] LABS: Basophils % (A) 0 %; Eosinophils # (A) 0.1 k/uL (0-0.7); Eosinophils % (A) 2 %; HCT 41.5 % (34.0-46.0); HGB 13.7 gm/dL (11.4-16.0); Lymphocytes # (A) 1.2 k/uL (1.0-4.8); Lymphocytes % (A) 19 %; MCH 27.6 pg (25.0-35.0); MCV 83.7 fL (80.0-100.0); Mean Platelet Volume 9.4; Monocytes # (A) 0.5 k/uL (0-1.0); Monocytes % (A) 7 %; Neutrophils # (A) 4.6 k/uL (1.3-7.7); Neutrophils % (A) 71 %; Platelet Count 175 k/uL (150-450); RBC 4.96 m/uL (3.80-5.40); RDW 14.7 % (11.5-15.5); WBC 6.5 k/uL (3.8-10.6)
[2018-04-20 08:07] LABS: Potassium 3.4 mmol/L (3.5-5.1)
[2018-04-20] MEDS: HEPARIN SODIUM,PORCINE 5,000 UNIT/ML 1 ML VIAL SQ SCH ×2 (08:29→21:53)
[2018-04-20] MEDS: ASPIRIN 325 MG TAB PO SCH (08:29)
[2018-04-20] MEDS: LOSARTAN 25 MG TAB PO SCH (08:29)
[2018-04-20 15:30] VITALS: RESP 16
--- NOTE | 2018-04-20 16:14 | PN ---
PROGRESS NOTE DATE OF SERVICE: 04/20/2018. INTERVAL HISTORY: This 88-year-old woman who was admitted with change in mental status and possible acute metabolic encephalopathy secondary to renal failure also had dehydration. The patient also had gait dysfunction. PT/OT evaluated the patient closely for possible ECF rehab. No chest pain. No palpitations. No fever. PHYSICAL EXAM: Alert and oriented x1. Pulse 74, blood pressure 117/85, respiration 18, temperature 98.1, pulse ox 98% room air. HEENT: Conjunctivae normal. Oral mucosa moist. NECK is no jugular venous distention. No carotid bruit. No lymph node enlargement. Cardiovascular: S1, S2 muffled. No S3, no S4. RESPIRATORY: Breath sounds diminished in the bases. No rhonchi and no crackles. ABDOMEN: Soft, nontender. No mass palpable. Legs: No edema. No swelling. Central nervous system: Diffusely weak. LABS: CBC within normal limits. Creatinine normal. Normal 0.9. ASSESSMENT: 1. Change in mental status possible acute metabolic encephalopathy secondary to renal failure. 2. Dehydration, diarrhea, increased creatinine with acute renal failure with possible prerenal factors and acute tubular necrosis. 3. Positive troponin indeterminate. 4. Diarrhea. 5. Recent urinary tract infection currently negative for infection. 6. Pulmonary nodules history. 7. Hypertension. 8. History of acute kidney injury. RECOMMENDATIONS AND DISCUSSION: Recommends to continue current medications, management and symptomatic treatment. Otherwise, at this time, I recommend continue with IV fluids. Continue with the rest of medications. PT/OT evaluation. Possible ECF rehab. Further recommendations to follow. MMODL / IJN: [id number] / LUANA
[2018-04-20] MEDS: POTASSIUM CHLORIDE IV SCH ×2 (16:57)
[2018-04-20] MEDS: DEXTROSE IV SCH ×2 (16:57)
[2018-04-20] MEDS: NACL IV SCH ×2 (16:57)
[2018-04-20] MEDS: amLODIPine 10 MG TAB PO SCH (21:53)
[2018-04-20] MEDS: FAMOTIDINE 20 MG TAB PO SCH (21:53)
[2018-04-21 06:59] LABS: Glucose,Whole Blood 98 mg/dL (75-99)
[2018-04-21] MEDS: HEPARIN SODIUM,PORCINE 5,000 UNIT/ML 1 ML VIAL SQ SCH ×2 (08:01→21:40)
[2018-04-21] MEDS: ASPIRIN 325 MG TAB PO SCH (08:01)
[2018-04-21] MEDS: DEXTROSE IV SCH ×2 (08:02)
[2018-04-21] MEDS: LOSARTAN 25 MG TAB PO SCH (08:02)
[2018-04-21] MEDS: POTASSIUM CHLORIDE IV SCH ×2 (08:02)
[2018-04-21] MEDS: NACL IV SCH ×2 (08:02)
[2018-04-21 11:58] LABS: Glucose,Whole Blood 143 mg/dL (75-99)
[2018-04-21 12:02] LABS: Calcium 9.4 mg/dL (8.4-10.2); Magnesium 1.6 mg/dL (1.6-2.3); Potassium 3.9 mmol/L (3.5-5.1)
[2018-04-21 13:56] VITALS: BMI 22.6
[2018-04-21] MEDS: FAMOTIDINE 20 MG TAB PO SCH (21:40)
[2018-04-21] MEDS: amLODIPine 10 MG TAB PO SCH (21:40)
[2018-04-22 06:24] VITALS: BP 134/73; PULSE 79; TEMP 97.2
[2018-04-22] MEDS: ASPIRIN 325 MG TAB PO SCH (07:42)
[2018-04-22] MEDS: HEPARIN SODIUM,PORCINE 5,000 UNIT/ML 1 ML VIAL SQ SCH (07:43)
[2018-04-22] MEDS: LOSARTAN 25 MG TAB PO SCH (07:43)
[2018-04-22 11:12] LABS: Calcium 9.3 mg/dL (8.4-10.2); Magnesium 1.7 mg/dL (1.6-2.3); Potassium 3.9 mmol/L (3.5-5.1)
[2018-04-22] MEDS: POTASSIUM CHLORIDE IV SCH ×2 (11:18)
[2018-04-22] MEDS: DEXTROSE IV SCH ×2 (11:18)
[2018-04-22] MEDS: NACL IV SCH ×2 (11:18)
[2018-04-22] MEDS ORDERED: Magnesium Replacement Protocol 1 EACH MISC MISCELLANE PRN (13:23)
--- NOTE | 2018-04-22 13:46 | P.DS ---
Providers Date of admission: 04/17/18 12:15 Expected date of discharge: 04/22/18 Attending physician: Mirela Goayl Consults: 04/17/18 11:43 Consult Physician Urgent Consulting Provider: Jennifer Lao Consult Reason/Comments: Cardiology evaluation Do you want consulting provider notified?: Yes 04/18/18 10:40 Consult Physician Routine Consulting Provider: Dennis Phelan Consult Reason/Comments: pulmonary nodule Do you want consulting provider notified?: Yes Primary care physician: Prashanth Gómez [facility] Course: Final Diagnoses: 1. Change in mental status, possible acute metabolic encephalopathy secondary to acute renal failure, improved 2. Acute renal failure secondary to dehydration, and diarrhea, possible prerenal factors and acute tubular necrosis 3. Positive troponin, indeterminate 4. Recent UTI, follow-up urine culture negative 5. Pulmonary nodules history 6. Hypertension 7. Dementia, possibly senile Hospital course: This is a pleasant 88-year-old female admitted with acute metabolic encephalopathy, acute renal failure, dehydration, generalized weakness , hypertension and multiple other medical issues. Family reports patient forgetting to eat, take her medications, as well as perform ADLs. Evaluated by both pulmonary/regional coordinator and cardiology. EKG reported paroxysmal/transient atrial fibrillation, mildly elevated troponins. Returned and maintained in sinus rhythm. Abnormal troponins not consistent with acute coronary syndrome as per cardiology Echo reported normal LV function. Baby aspirin recommended for anticoagulation as per further discussion with cardiology CLINICAL COURIER. Maintained on gentle IV fluid hydration with renal function improved. Evaluated by PT/OT with subacute rehab recommended at discharge. Significant clinical improvement. Patient has been cleared by all consults for discharge. Patient is being discharged to [facility] in a stable condition with guarded prognosis. Physical Exam: General: Sitting up in bed, no acute distress, alert and oriented times 2-3. CV ; regular S1, S2, positive systolic murmur.LUNGS: Clear, bilateral bases diminished.NEURO: No focal deficits. The impression and plan of care has been dictated as directed. : I performed a history and examination of this patient, discussed the same with the dictator. I agree with the dictator's note ,documented as a scribe. Any additional findings or plans will be noted. Time taken: 35 minutes Patient Condition at Discharge: Stable Plan - Discharge Summary Discharge Rx Participant: No New Discharge Prescriptions: New Acetaminophen Tab [Tylenol] 650 mg PO Q6HR PRN tab PRN Reason: Fever And/ Or Pain amLODIPine [Norvasc] 10 mg PO HS tab Aspirin EC [Ecotrin Low Dose] 81 mg PO DAILY #1 tablet. Famotidine [Pepcid] 20 mg PO HS tab Losartan [Cozaar] 25 mg PO DAILY tab Discontinued Verapamil HCl [Verapamil ER] 240 mg PO DAILY Ciprofloxacin HCl [Cipro] 500 mg PO Q12HR Discharge Medication List Acetaminophen Tab [Tylenol] 650 mg PO Q6HR PRN tab 04/21/18 [Rx] Aspirin EC [Ecotrin Low Dose] 81 mg PO DAILY #1 tablet. 04/21/18 [Rx] Famotidine [Pepcid] 20 mg PO HS tab 04/21/18 [Rx] Losartan [Cozaar] 25 mg PO DAILY tab 04/21/18 [Rx] amLODIPine [Norvasc] 10 mg PO HS tab 04/21/18 [Rx] Follow up Appointment(s)/Referral(s): [facility] [Provider Group] - 1 Week () Rico Alford MD [Primary Care Provider] - 1 Week (after dc from ECF) Jarocho Patel DO [STAFF PHYSICIAN] - 3 Days Activity/Diet/Wound Care/Special Instructions: [facility] COnfirm Cardiology F/U prior to dc Diet: Cardiology Activity: as tolerated cbc,bmp, magnesium in 3 days Discharge Disposition: TRANSFER TO SNF/ECF
== END 2018-04-22 16:20 | DRG 682 ==
LOC: EC 08:41 → 6SEL 12:15 → OBSVTOIN 12:15 → 6SEL 16:18 → 5MS5E 04-19 23:19
PROVIDERS: ADMIT Hospitalist; ATTEND Hospitalist
DX: N17.0 Acute kidney failure with tubular necrosis (principal); G93.41 Metabolic encephalopathy; I10 Essential (primary) hypertension; E78.5 Hyperlipidemia, unspecified; F03.90 Unspecified dementia, unspecified severity, without behavioral disturbance, psychotic disturbance, mood disturbance, and anxiety; E86.0 Dehydration; R19.7 Diarrhea, unspecified; R32 Unspecified urinary incontinence; R77.8 Other specified abnormalities of plasma proteins; I48.0 Paroxysmal atrial fibrillation; W19.XXXA Unspecified fall, initial encounter; R91.1 Solitary pulmonary nodule; R07.81 Pleurodynia; R26.9 Unspecified abnormalities of gait and mobility; R00.1 Bradycardia, unspecified; I95.9 Hypotension, unspecified; Z87.440 Personal history of urinary (tract) infections; Z79.82 Long term (current) use of aspirin; Z79.899 Other long term (current) drug therapy; Z82.49 Family history of ischemic heart disease and other diseases of the circulatory system; Z83.3 Family history of diabetes mellitus
CPT/HCPCS: 36415; 70450; 71046; 76770; 80048; 80053; 80061; 80076; 81001; 82550; 82553; 83605; 83690; 83735; 84484; 85025; 87086; 87324; 93005; 93306; 94760; 96361; 96374; 96375; 99285

== ENCOUNTER 2018-12-25 16:00 | Inpatient (IN) | payer MEDICARE ==
[2018-12-25] MEDS ORDERED: SODIUM CHLORIDE 0.9% 500 ML 500 ML IV STA (16:44)
--- NOTE | 2018-12-25 16:51 | ED ---
General Adult HPI - General Chief complaint: Syncope Stated complaint: Syncope, vomiting Source: EMS Mode of arrival: EMS Limitations: no limitations - History of Present Illness Initial comments: Dictation was produced using Livestream dictation software. please excuse any grammatical, word or spelling errors. Chief Complaint: 88-year-old female past medical history of progressive dementia , hypertension presents with near syncopal event. History of Present Illness: Patient is a 80-year-old female patient transferred here by EMS. According to daughter was at bedside patient was eating earlier when she came very lightheaded. Patient is unable to detail HPI secondary to mental status which family alleges is baseline for her. Patient has been having progressive dementia. EMS was not available for report. EKG is performed by EMS which showed atrial fibrillation. According to EMS patient does not have his history. Daughter who is at bedside states the patient does not have a history of atrial fibrillation or atrial flutter. They do report that she appears more pale at this time. Compared to usual. Unable to obtain for us at this time secondary to PHYSICAL EXAM: General Impression: Alert and oriented x2, not in acute distress HEENT: Normocephalic atraumatic, extra-ocular movements intact, pupils equal and reactive to light bilaterally, dry mucous membranes Cardiovascular: Tachycardic Chest: Lungs clear to auscultation bilaterally, no rhonchi, no wheeze, no rales Abdomen: Bowel sounds present, abdomen soft, non-tender, non-distended, no organomegaly Musculoskeletal: Pulses present and equal in all extremities, no peripheral edema Motor: Power 5/5 bilaterally, no focal deficits noted Neurological: CN II-XII grossly intact, no focal motor or sensory deficits noted , confused however follows some commands, moves all extremities grossly Skin: Intact with no visualized rashes Psych: Normal affect and mood ED course: 88 yo female presents to emergency department via EMS for syncopal/ near syncopal event. Vital signs upon arrival are within acceptable limits. Patient shows no new neuro deficits. Patient's confused however per family patient's family history. Daughter reports that patient is DO NOT RESUSCITATE.Laboratory evaluation obtained. CBC, coag panel, metabolic panel was obtained. Rocephin shows potassium 3.1. Patient has slight elevation of renal markers. Troponin 0.146. Patient started on low intensity heparin. Patient given aspirin. Family discussed that patient is a DO NOT RESUSCITATE. There are however amenable to have patient admitted for brief inpatient stay. Family is understandable with plan. EKG interpretation: Ventricular rate 72, atrial flutter, QRS 78, QTc 455. No WV prolongation, no QTC prolongation, no ST or T-wave changes noted. - Related Data Home Medications Medication Instructions Recorded Confirmed Donepezil HCl [Aricept] 5 mg PO DAILY 12/25/18 12/25/18 amLODIPine [Norvasc] 10 mg PO DAILY 12/25/18 12/25/18 Previous Rx's Medication Instructions Recorded Losartan [Cozaar] 25 mg PO DAILY tab 04/21/18 Allergies Allergy/AdvReac Type Severity Reaction Status Date / Time No Known Allergies Allergy Verified 12/25/18 17:28 Review of Systems ROS Statement: Those systems with pertinent positive or pertinent negative responses have been documented in the HPI. ROS Other: All systems not noted in ROS Statement are negative. 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 History of Any Multi-Drug Resistant Organisms: None Reported Past Surgical History: No Surgical Hx Reported Additional Past Surgical History / Comment(s): One eye cataract removal (unsure laterality), exploratory laparotomy for teratoma tumor. Past Anesthesia/Blood Transfusion Reactions: Postoperative Nausea & Vomiting ( PONV) Past Psychological History: No Psychological Hx Reported Smoking Status: Never smoker - Past Family History Father History Unknown: Yes Mother Family Medical History: Congestive Heart Failure (CHF), Diabetes Mellitus General Exam Limitations: no limitations Course Vital Signs 12/25/18 16:37 Temperature 98.7 F Pulse Rate 70 Respiratory 18 Rate Blood Pressure 131/81 O2 Sat by Pulse 98 Oximetry Medical Decision Making - Lab Data Result diagrams: 12/25/18 17:01 12/25/18 17:01 Lab Results 12/25/18 12/25/18 12/25/18 Range/Units 17:01 17:01 17:01 WBC 9.3 (3.8-10.6) k/uL RBC 4.79 (3.80-5.40) m/uL Hgb 13.2 (11.4-16.0) gm/dL Hct 40.3 (34.0-46.0) % MCV 84.1 (80.0-100.0) fL MCH 27.5 (25.0-35.0) pg MCHC 32.8 (31.0-37.0) g/dL RDW 14.2 (11.5-15.5) % Plt Count 324 (150-450) k/uL Neutrophils % 82 % Lymphocytes % 11 % Monocytes % 5 % Eosinophils % 1 % Basophils % 0 % Neutrophils # 7.6 (1.3-7.7) k/uL Lymphocytes # 1.0 (1.0-4.8) k/uL Monocytes # 0.5 (0-1.0) k/uL Eosinophils # 0.1 (0-0.7) k/uL Basophils # 0.0 (0-0.2) k/uL PT (9.0-12.0) sec INR (<1.2) APTT (22.0-30.0) sec Sodium 139 (137-145) mmol/L Potassium 3.1 L (3.5-5.1) mmol/L Chloride 106 (98-107) mmol/L Carbon Dioxide 26 (22-30) mmol/L Anion Gap 7 mmol/L BUN 24 H (7-17) mg/dL Creatinine 1.46 H (0.52-1.04) mg/dL Est GFR (CKD-EPI)AfAm 37 (>60 ml/min/1.73 sqM) Est GFR (CKD-EPI)NonAf 32 (>60 ml/min/1.73 sqM) Glucose 143 H (74-99) mg/dL Calcium 8.7 (8.4-10.2) mg/dL Magnesium 1.8 (1.6-2.3) mg/dL Total Bilirubin 0.5 (0.2-1.3) mg/dL AST 15 (14-36) U/L ALT 22 (9-52) U/L Alkaline Phosphatase 82 (38-126) U/L Total Creatine Kinase 39 (30-135) U/L CK-MB (CK-2) 1.4 (0.0-2.4) ng/mL CK-MB (CK-2) Rel Index 3.6 Troponin I 0.146 H* (0.000-0.034) ng/mL Total Protein 5.8 L (6.3-8.2) g/dL Albumin 3.0 L (3.5-5.0) g/dL 12/25/18 Range/Units 17:01 WBC (3.8-10.6) k/uL RBC (3.80-5.40) m/uL Hgb (11.4-16.0) gm/dL Hct (34.0-46.0) % MCV (80.0-100.0) fL MCH (25.0-35.0) pg MCHC (31.0-37.0) g/dL RDW (11.5-15.5) % Plt Count (150-450) k/uL Neutrophils % % Lymphocytes % % Monocytes % % Eosinophils % % Basophils % % Neutrophils # (1.3-7.7) k/uL Lymphocytes # (1.0-4.8) k/uL Monocytes # (0-1.0) k/uL Eosinophils # (0-0.7) k/uL Basophils # (0-0.2) k/uL PT 11.1 (9.0-12.0) sec INR 1.0 (<1.2) APTT 23.2 (22.0-30.0) sec Sodium (137-145) mmol/L Potassium (3.5-5.1) mmol/L Chloride (98-107) mmol/L Carbon Dioxide (22-30) mmol/L Anion Gap mmol/L BUN (7-17) mg/dL Creatinine (0.52-1.04) mg/dL Est GFR (CKD-EPI)AfAm (>60 ml/min/1.73 sqM) Est GFR (CKD-EPI)NonAf (>60 ml/min/1.73 sqM) Glucose (74-99) mg/dL Calcium (8.4-10.2) mg/dL Magnesium (1.6-2.3) mg/dL Total Bilirubin (0.2-1.3) mg/dL AST (14-36) U/L ALT (9-52) U/L Alkaline Phosphatase (38-126) U/L Total Creatine Kinase (30-135) U/L CK-MB (CK-2) (0.0-2.4) ng/mL CK-MB (CK-2) Rel Index Troponin I (0.000-0.034) ng/mL Total Protein (6.3-8.2) g/dL Albumin (3.5-5.0) g/dL Disposition Clinical Impression: NSTEMI (non-ST elevated myocardial infarction), New onset atrial fibrillation Disposition: ADMITTED IP TO THIS HOSP Condition: Fair Referrals: Rico Alford MD [Primary Care Provider] - 1-2 days Decision Time: 19:04
[2018-12-25] MEDS ORDERED: HEPARIN SODIUM,PORCINE 5,000 UNIT/ML 1 ML VIAL IV PRN (16:55)
[2018-12-25] MEDS ORDERED: HEPARIN SODIUM,PORCINE 5,000 UNIT/ML 1 ML VIAL IV ONE (16:55)
[2018-12-25] MEDS ORDERED: HEPARIN SOD,PORK IN 0.45% NACL 25,000 UNIT in 0.45% NACL 1 250ML.BAG IV SCH (17:00)
[2018-12-25 17:18] LABS: Basophils % (A) 0 %; Eosinophils # (A) 0.1 k/uL (0-0.7); Eosinophils % (A) 1 %; HCT 40.3 % (34.0-46.0); HGB 13.2 gm/dL (11.4-16.0); Lymphocytes % (A) 11 %; MCH 27.5 pg (25.0-35.0); MCHC 32.8 g/dL (31.0-37.0); MCV 84.1 fL (80.0-100.0); Mean Platelet Volume 8.7; Monocytes # (A) 0.5 k/uL (0-1.0); Monocytes % (A) 5 %; Neutrophils # (A) 7.6 k/uL (1.3-7.7); Neutrophils % (A) 82 %; Platelet Count 324 k/uL (150-450); RBC 4.79 m/uL (3.80-5.40); RDW 14.2 % (11.5-15.5); WBC 9.3 k/uL (3.8-10.6)
[2018-12-25 17:23] LABS: Partial Thromboplastin Time 23.2 sec (22.0-30.0); Prothrombin Time 11.1 sec (9.0-12.0)
--- NOTE | 2018-12-25 17:23 | XR ---
EXAMINATION TYPE: XR chest 2V DATE OF EXAM: 12/25/2018 COMPARISON: 04/17/2018 HISTORY: Syncope TECHNIQUE: Frontal and lateral views of the chest are obtained. FINDINGS: There is no heart failure nor confluent pneumonic infiltrate. Costophrenic angles are guanako r. Thoracic aorta is atheromatous. There are chest leads. IMPRESSION: No active cardiopulmonary disease. Normal heart. No change.
[2018-12-25 17:31] LABS: Calcium 8.7 mg/dL (8.4-10.2); Magnesium 1.8 mg/dL (1.6-2.3); Potassium 3.1 mmol/L (3.5-5.1); Total Bilirubin 0.5 mg/dL (0.2-1.3); Total Protein 5.8 g/dL (6.3-8.2)
[2018-12-25 17:42] LABS: Creatine Kinase MB 1.4 ng/mL (0.0-2.4)
[2018-12-25] MEDS ORDERED: POTASSIUM CHLORIDE 20 MEQ in WATER FOR INJECTION 1 100ML.BAG IVPB STA (18:02)
[2018-12-25 18:09] LABS: Troponin I 0.146 ng/mL (0.000-0.034)
[2018-12-25] MEDS ORDERED: ASPIRIN 81 MG PO STA (18:45)
[2018-12-25] MEDS ORDERED: NALOXONE 0.4 MG/ML 1 ML VIAL IV PRN (19:01)
[2018-12-25] MEDS ORDERED: ONDANSETRON 4 MG/2 ML VIAL IVP STA (19:47)
[2018-12-25] MEDS: SODIUM CHLORIDE 0.9% 1,000 ML IV SCH (20:06)
[2018-12-26 06:25] LABS: Calcium 8.3 mg/dL (8.4-10.2); Potassium 3.3 mmol/L (3.5-5.1)
[2018-12-26 06:35] VITALS: BMI 19.2
--- NOTE | 2018-12-26 07:51 | HP ---
HISTORY AND PHYSICAL DATE OF SERVICE: 12/26/2018 CHIEF COMPLAINTS: Syncope and vomiting. HISTORY OF PRESENT ILLNESS: This 88-year-old woman with a past medical history of multiple medical problems include dementia, history hypertension, hyperlipidemia being followed by Dr. Alford in the outpatient setting is apparently living in an [facility] home. The patient was recently admitted with change in mental status and possibly renal failure with dehydration. Currently the patient was taken to [facility] with complaints of syncope and vomiting. According to the daughter, the patient was eating and became lightheaded. The patient had significant dementia and baseline change in mental status also and the patient was taken to [facility] and was admitted for further evaluation treatment. The EKG performed by EMS showed atrial fibrillation. It was not very clear. Patient had tachycardia at any time, but the EKG performed in the ER showed atrial flutter with varying block with amount of bradycardia. The patient was admitted for further evaluation and treatment. There is no history of any trauma. A detailed history cannot be taken from the patient because the patient is sedated at this time. PAST MEDICAL HISTORY: Per chart, dementia, hypertension, hyperlipidemia, history of dehydration, renal failure. MEDICATIONS: Medications prior to admission include home medications are: 1. Norvasc 10 mg daily. 2. Cozaar 25 mg daily. 3. Aricept 5 mg p.o. daily. ALLERGIES: Allergies are none. Family history, social history, review of systems could not be taken at length. Congestive heart failure and diabetes mellitus in the family per chart. PHYSICAL EXAMINATION: The patient is confused. Pulse 58, blood pressure 145/72, respiration 18, temperature 97 degrees, pulse ox 93% on room air. HEENT: Conjunctivae normal. Oral mucosa moist. Neck is no jugular venous distention. No carotid bruit. No lymph node enlargement. CARDIOVASCULAR: S1, S2 muffled. No S3, no S4. RESPIRATORY: Breath sounds diminished at the bases. A few scattered rhonchi and crackles. ABDOMEN: Soft, nontender. No mass palpable. LEGS: No edema. No swelling. NERVOUS SYSTEM: Higher functions as mentioned earlier. Moves all 4 limbs. No focal motor or sensory deficits. LYMPHATICS: No lymphadenopathy of the neck, axillae or groin. SKIN: No ulcer, rash or bleeding. JOINTS: No active deforming arthropathy. LABS: CBC within normal. Sodium 139, potassium 3.1. Creatinine is 1.46. Troponin 0.146. ASSESSMENT: 1. Syncope, rule out cardiac arrhythmia. 2. Atrial flutter proximal probably new onset with varying block. 3. Troponin 0.146, rule out acute non ST elevation myocardial infarction. 4. Acute on chronic renal failure with possible prerenal renal failure and dehydration. 5. Hypokalemia. 6. Dementia. 7. Change in mental status, metabolic encephalopathy, chronic. 8. Hypertension. 9. Hyperlipidemia. 10.History of urinary tract infection. 11.History of renal failure. 12.History of cervical lymphadenopathy. 13.History of postoperative ileus. 14.History of cataracts. 15.History of glaucoma. 16.NO CODE, NO CPR, NO VENT. RECOMMENDATIONS AND DISCUSSION: In this 88-year-old woman who presented with multiple complex medical issues, we will monitor the patient closely. Continue the current medications, continue symptomatic treatment. Continue the telemetry. I would also recommend Cardiology evaluation and cardiac workup also. A 2D echo has been done last year, which showed normal ejection fraction 50% to 60%. I would also recommend cautious IV fluids. Troponins elevated. Resume the home medications. Antiplatelet agents. IV heparin has been initiated. Prognosis guarded because of multiple complex medical issues. Further recommendations to follow. A copy of dictation forwarded to Dr. Alford who is the primary physician. BRYANNA / SHAD: [id number] /
[2018-12-26] MEDS ORDERED: Potassium Replacement Protocol 1 EACH MISC MISCELLANE PRN (08:41)
[2018-12-26] MEDS: amLODIPine 10 MG TAB PO SCH (08:51)
[2018-12-26] MEDS: PANTOPRAZOLE 40 MG/10 ML VIAL IV SCH (08:51)
[2018-12-26] MEDS: LOSARTAN 25 MG TAB PO SCH (08:51)
[2018-12-26] MEDS: DONEPEZIL 5 MG TAB PO SCH (08:51)
[2018-12-26] MEDS: POTASSIUM CHLORIDE ER 20 MEQ TAB.ER PO SCH ×2 (08:51→11:02)
--- NOTE | 2018-12-26 12:29 | ECHOF ---
Referral Reason:chf MEASUREMENTS -------- HEIGHT: 170.2 cm WEIGHT: 49.9 kg BP: 145/72 RVIDd: 2.6 cm (< 3.3) IVSd: 1.0 cm (0.6 - 1.1) LVIDd: 3.9 cm (3.9 - 5.3) LVPWd: 1.0 cm (0.6 - 1.1) IVSs: 1.3 cm LVIDs: 2.6 cm LVPWs: 1.3 cm LAESV Index (A-L): 21.70 ml/m Ao Diam: 3.3 cm (2.0 - 3.7) AV Cusp: 1.8 cm (1.5 - 2.6) LA Diam: 2.7 cm (2.7 - 3.8) MV EXCURSION: 9.718 mm (> 18.000) MV EF SLOPE: 49 mm/s (70 - 150) EPSS: 0.5 cm MV E Chacho: 0.97 m/s MV DecT: 192 ms MV A Chacho: 0.93 m/s MV E/A Ratio: 1.05 RAP: 5.00 mmHg RVSP: 34.35 mmHg FINDINGS -------- Sinus rhythm. This was a technically good study. The left ventricular size is normal. Left ventricular wall thickness is normal. Overall left vent ricular systolic function is normal with, an EF between 55 - 60 %. The right ventricle is normal in size. Normal LA size by volume 22+/-6 ml/m2. RA appears enlarged. Aortic valve is trileaflet and is mildly thickened. The mitral valve leaflets are mildly thickened. Mild mitral annular calcification present. Modera te mitral regurgitation is present. Moderate tricuspid regurgitation present. The right ventricular systolic pressure, as measured by D oppler, is 34.35mmHg. Trace/mild (physiologic) pulmonic regurgitation. The aortic root size is normal. Normal inferior vena cava with normal inspiratory collapse consistent with estimated right atrial pre ssure of 5 mmHg. There is a trivial pericardial effusion present. CONCLUSIONS -------- 1. Sinus rhythm. 2. This was a technically good study. 3. The left ventricular size is normal. 4. Left ventricular wall thickness is normal. 5. Overall left ventricular systolic function is normal with, an EF between 55 - 60 %. 6. The right ventricle is normal in size. 7. Normal LA size by volume 22+/-6 ml/m2. 8. RA appears enlarged. 9. Aortic valve is trileaflet and is mildly thickened. 10. The mitral valve leaflets are mildly thickened. 11. Mild mitral annular calcification present. 12. Moderate mitral regurgitation is present. 13. Moderate tricuspid regurgitation present. 14. The right ventricular systolic pressure, as measured by Doppler, is 34.35mmHg. 15. Trace/mild (physiologic) pulmonic regurgitation. 16. The aortic root size is normal. 17. Normal inferior vena cava with normal inspiratory collapse consistent with estimated right atrial pressure of 5 mmHg. 18. There is a trivial pericardial effusion present. MARITIME PILOT: Jen Madrid RDCS
[2018-12-26] MEDS: APIXABAN 2.5 MG TABLET PO SCH ×2 (12:47→19:37)
--- NOTE | 2018-12-26 12:54 | CONS ---
CONSULTATION Mrs. Sandy is an 88-year-old female who presented with symptoms of fatigue and dizziness. On presentation, she was noted to be in atrial fibrillation-flutter and subsequently converted to sinus mechanism. Patient has a known history of significant dementia. She was in the hospital in April of 2018 and had a change in mental status as well as an episode of atrial fibrillation that was brief. On the monitor, she had episode of 2-to-1 conduction. She is not complaining of any chest pain or dyspnea, although the reliability of her history is very limited. There is no prior documented history of myocardial infarction. Her echocardiogram in April of last year revealed a preserved ventricular size and systolic function. Her history is remarkable for hypertension as well history of dementia. She was noted to be dehydrated on presentation. MEDICATIONS: Include amlodipine 10 mg daily, losartan 25 mg daily, and Aricept. REVIEW OF SYSTEMS: Not reliable started, but the patient denies any chest pain or dyspnea. Denies any dizziness or palpitation. PHYSICAL EXAMINATION: Blood pressure 162/75 with a heart rate in the 60s. HEAD: Normocephalic. EYES: Sclerae nonicteric. NECK: Good upstroke, no bruit. LUNGS: Clear to auscultation. HEART: Regular rate and rhythm, S1, S2. No S3. No gallop or rub appreciated with a systolic murmur. ABDOMEN: Soft, nontender, positive bowel sounds, no organomegaly. EXTREMITIES: No edema, intact pulses. LAB DATA: Revealed BUN and creatinine 20 and 1.17, potassium 3.3, magnesium 1.8, troponin 0.146. Hemoglobin of 13.2. Initial EKG revealed atrial flutter with variable AV block. Chest x-ray revealed no acute infiltrate. IMPRESSION: 1. Paroxysmal atrial fibrillation back in sinus mechanism. 2. Dementia. 3. Hypertension. 4. Dehydration, improving. RECOMMENDATION: From the cardiac standpoint, I will stop her IV heparin. I will initiate treatment with anticoagulation. Will follow her renal function. Will replace her potassium. I will obtain echocardiogram with Doppler and depending on the results of her testing, further recommendation will be made. The patient may have episode of sick sinus syndrome and she needs to be observed to see if it is significant that intervention will be needed. The elevation of the troponin does not reflect any acute coronary syndrome and in view of her overall status, I would not recommend any further cardiac workup in that regard. Thank you for this consult. Will follow with you. SCOOBYL / IJN: [id number] /
[2018-12-26] MEDS: SODIUM CHLORIDE 0.9% 1,000 ML IV SCH (16:00)
--- NOTE | 2018-12-26 18:27 | PN ---
PROGRESS NOTE DATE OF SERVICE: 12/26/2018 This 88-year-old woman who was admitted with syncope also had atrial flutter, which is probably paroxysmal. The patient's sensorium has improved significantly. Patient being closely monitored. A 2D echo with Doppler ordered by Cardiology today showed ejection fraction about 50 to 60%. enlarged. The patient also had some dehydration, which is improving at this time. No chest pain. No palpitations. No fever. EXAM: Patient is conscious, confused. Pulse is 81, blood pressure 157/81, respiratory rate 16, temperature 98.6, pulse ox 94% on room air. HEENT: Conjunctivae normal. Neck: No jugular venous distention. Cardiovascular: S1, S2 muffled. Respirations: Breath sounds diminished in the bases. A few scattered rhonchi and crackles. Abdomen is soft. Nontender. Nervous system: No focal deficits. LABS: Sodium is 141, potassium 3.3, creatinine 1.17. ASSESSMENT: 1. Syncope, rule out cardiac arrhythmia. 2. Atrial flutter with paroxysmal new onset with varying block. 3. Dehydration. 4. Troponin 0.146, rule out acute non ST segment elevation myocardial infarction. 5. Acute on chronic renal failure, possibly prerenal renal failure and dehydration. 6. Hypokalemia. 7. Dementia. 8. Change in mental status, metabolic encephalopathy, chronic. 9. Hypertension. 10.Hyperlipidemia. 11.Urinary tract infection. 12.History of renal failure. 13.History of cervical adenopathy. 14.History of postoperative ileus. 15.History of cataracts. 16.Glaucoma. 17.NO CODE, NO CPR, NO VENT. RECOMMENDATIONS AND DISCUSSION: In this 88-year-old woman who presented with multiple medical issues, we will monitor the patient closely, continue the current medications, management and symptomatic treatment. Otherwise, at this time, I will request PT/OT evaluation. Discussed with the family at length and possible ECF rehab is also being considered. Otherwise , prognosis guarded. Further recommendations to follow. MMODL / IJN: [id number] / MTDD
[2018-12-27 06:49] LABS: Basophils % (A) 0 %; Eosinophils # (A) 0.1 k/uL (0-0.7); Eosinophils % (A) 2 %; HCT 36.2 % (34.0-46.0); HGB 11.6 gm/dL (11.4-16.0); Lymphocytes % (A) 16 %; MCH 27.2 pg (25.0-35.0); MCHC 32.2 g/dL (31.0-37.0); MCV 84.5 fL (80.0-100.0); Mean Platelet Volume 8.4; Monocytes # (A) 0.5 k/uL (0-1.0); Monocytes % (A) 7 %; Neutrophils # (A) 4.6 k/uL (1.3-7.7); Neutrophils % (A) 73 %; Platelet Count 238 k/uL (150-450); RBC 4.28 m/uL (3.80-5.40); RDW 14.2 % (11.5-15.5); WBC 6.3 k/uL (3.8-10.6)
[2018-12-27 07:01] LABS: Calcium 8.6 mg/dL (8.4-10.2); Potassium 3.5 mmol/L (3.5-5.1)
[2018-12-27] MEDS: SODIUM CHLORIDE 0.9% 1,000 ML IV SCH (08:09)
[2018-12-27] MEDS: LOPERAMIDE 2 MG CAP PO SCH ×2 (08:56→20:00)
[2018-12-27] MEDS: PANTOPRAZOLE 40 MG/10 ML VIAL IV SCH (08:59)
[2018-12-27] MEDS: LOSARTAN 25 MG TAB PO SCH (08:59)
[2018-12-27] MEDS: APIXABAN 2.5 MG TABLET PO SCH ×2 (08:59→20:00)
[2018-12-27] MEDS: amLODIPine 10 MG TAB PO SCH (08:59)
[2018-12-27] MEDS: DONEPEZIL 5 MG TAB PO SCH (08:59)
--- NOTE | 2018-12-27 13:27 | P.PN ---
Subjective Progress Note Date: 12/27/18 This is an 88-year-old female was who presented to the hospital with symptoms primarily of dizziness and fatigue. She was noted to be in atrial fibrillation and subsequently converted to normal sinus rhythm. Patient does have known history of dementia, she also has a history of an episode of atrial fibrillation in the past. History also of hypertension. Echocardiogram with Doppler study was performed which revealed an ejection fraction of 55-60%. Moderate mitral regurgitation, moderate tricuspid regurg and a trivial pericardial effusion noted. Blood pressure this morning 114/56 with a heart rate in the 70s, normal sinus rhythm. White blood cell count 6.3, hemoglobin 11.6, platelet count 238. Sodium 141, potassium 3.5, BUN 18 and creatinine 0.9. Objective - Vital Signs Vital signs: Vital Signs Temp 98.4 F 12/27/18 11:35 Pulse 69 12/27/18 11:35 Resp 18 12/27/18 11:35 BP 114/56 12/27/18 11:35 Pulse Ox 93 L 12/27/18 11:35 Intake & Output 12/26/18 12/27/18 12/27/18 18:59 06:59 18:59 Intake Total 63.331 400 Balance 63.331 400 Weight 55.7 kg 55.6 kg Intake: Intake, IV Titration 63.331 Amount Heparin Sod,Pork in 0.45% 63.331 NaCl 25,000 unit In 0.45 % NaCl 1 250ml.bag @ 12 UNITS/KG/HR 5.98 mls/hr IV .Q24H [facility] Rx#: [id number] Oral 400 Other: Voiding Method Diaper Diaper Diaper Incontinent Incontinent Incontinent # Voids 2 1 # Bowel Movements 1 - Exam PHYSICAL EXAMINATION: GENERAL: 88-year-old female in no acute distress at the time of my examination HEENT: Head is atraumatic, normocephalic. Pupils equal, round. Sclera anicteric. Conjunctiva are clear. Mucous membranes of the mouth are moist. Neck is supple. There is no elevated jugular venous pressure. No carotid bruit is heard. HEART EXAMINATION: Heart S1, S2 systolic murmur is heard . CHEST EXAMINATION: Lungs are clear to auscultation and precussion. No chest wall tenderness is noted on palpation or with deep breathing. ABDOMEN: Soft, nontender. Bowel sounds are heard. No organomegaly noted. EXTREMITIES: 2+ peripheral pulses with no evidence of peripheral edema and no calf tenderness noted. NEUROLOGIC patient is awake, alert and oriented 1 . . - Labs CBC & Chem 7: 12/27/18 06:28 12/27/18 06:28 Labs: Abnormal Lab Results - Last 24 Hours (Table) 12/27/18 Range/Units 06:28 Chloride 112 H (98-107) mmol/L BUN 18 H (7-17) mg/dL Assessment and Plan Plan: Assessment and plan #1 paroxysmal atrial fibrillation, on Eliquis 2-1/2 mg one tablet by mouth twice a day for anticoagulation #2 hypertension #3 dementia Plan From cardiology's perspective, we'll recommend to continue the patient on her current medications. We will follow her along with you now on an as-needed basis only, please don't hesitate to call with any questions. DNP note has been reviewed, I agree with a documented findings and plan of care. Patient was seen and examined.
[2018-12-27] MEDS ORDERED: ONDANSETRON 4 MG/2 ML VIAL IVP PRN (14:22)
--- NOTE | 2018-12-27 21:04 | PN ---
PROGRESS NOTE DATE OF SERVICE: 12/27/2018 This 88-year-old woman who was admitted with syncope also had atrial flutter paroxysmally. The patient also had dehydration. Patient complains of weakness. Patient also had diarrhea with this subacute to chronic. No chest pain. No palpitations. No fever. EXAM: Patient is confused. Pulse 79. Blood pressure 123/66. Respirations 18. Temperature 98.2, pulse ox 94% on room air. HEENT: Conjunctivae normal. NECK: No jugular venous distention. Cardiac: S1, S2 muffled. Respirations: Breath sounds diminished in the bases. No rhonchi. No crackles. Abdomen is soft. Nontender. LEGS: No edema. No swelling. CENTRAL NERVOUS SYSTEM: Diffusely weak. LAB DATA: CBC within normal limits. Sodium 140, potassium 3.5. ASSESSMENT: 1. Syncope, rule out cardiac arrhythmia. 2. Atrial flutter with proximal with new onset with varying block. 3. Dehydration. 4. Subacute to chronic diarrhea. 5. Troponin 0.146, rule out acute non ST segment elevation myocardial infarction. 6. Acute on chronic renal failure possibly prerenal renal failure with dehydration. 7. Hypokalemia. 8. Dementia. 9. Change in mental status, metabolic encephalopathy, chronic. 10.Hypertension. 11.Hyperlipidemia. 12.Urinary tract infection. 13.History of renal failure. 14.History of cervical adenopathy. 15.History of postoperative ileus. 16.History of cataract. 17.History of glaucoma. 18.Elevated troponin of indeterminate nature, myocardial infarction unlikely. 19.NO CODE, NO CPR, NO VENT. RECOMMENDATIONS AND DISCUSSION: I recommend to continue current medications, management and treatment. Otherwise at this time I would recommend the patient to be followed closely. Otherwise continue with hydration. PT/OT evaluation, possible ECF rehab. Gastroenterology evaluation for further evaluation of the diarrhea. Discussed with the family. MMODL / IJN: [id number] /
[2018-12-28] MEDS: PANTOPRAZOLE 40 MG TABLET PO SCH (06:16)
[2018-12-28 06:44] LABS: Basophils % (A) 0 %; Eosinophils # (A) 0.1 k/uL (0-0.7); Eosinophils % (A) 2 %; HCT 38.7 % (34.0-46.0); HGB 12.5 gm/dL (11.4-16.0); Lymphocytes # (A) 1.3 k/uL (1.0-4.8); Lymphocytes % (A) 15 %; MCHC 32.2 g/dL (31.0-37.0); MCV 83.7 fL (80.0-100.0); Mean Platelet Volume 7.6; Monocytes # (A) 0.5 k/uL (0-1.0); Monocytes % (A) 7 %; Neutrophils # (A) 6.1 k/uL (1.3-7.7); Neutrophils % (A) 75 %; Platelet Count 292 k/uL (150-450); RBC 4.62 m/uL (3.80-5.40); RDW 13.8 % (11.5-15.5); WBC 8.2 k/uL (3.8-10.6)
[2018-12-28 07:00] LABS: Calcium 8.9 mg/dL (8.4-10.2); Potassium 3.9 mmol/L (3.5-5.1)
[2018-12-28] MEDS: SODIUM CHLORIDE 0.9% 1,000 ML IV SCH (08:08)
[2018-12-28] MEDS: amLODIPine 10 MG TAB PO SCH (08:11)
[2018-12-28] MEDS: DONEPEZIL 5 MG TAB PO SCH (08:11)
[2018-12-28] MEDS: LOPERAMIDE 2 MG CAP PO SCH ×2 (08:11→21:08)
[2018-12-28] MEDS: LOSARTAN 25 MG TAB PO SCH (08:11)
[2018-12-28] MEDS: APIXABAN 2.5 MG TABLET PO SCH ×2 (08:11→21:08)
--- NOTE | 2018-12-28 16:23 | PN ---
PROGRESS NOTE DATE OF SERVICE: 12/28/2018 This 88-year-old woman is admitted with syncope, also had cardiac arrhythmia and dehydration also. Patient also had diarrhea. No chest pain. No palpitations. Gastrointestinal consultation was sought. EXAM: The patient is conscious, confused. Pulse 83, blood pressure 112/63, respiration 16, temperature 97.2, pulse ox 94% on room air. HEENT: Conjunctivae normal. NECK: No jugular venous distention. CARDIOVASCULAR: S1, S2 muffled. RESPIRATORY: Breath sounds diminished in the bases. Scattered rhonchi, no crackles. ABDOMEN: Soft, nontender. LEGS: No edema. NERVOUS SYSTEM: No focal deficits. LABS: CBC within normal limits. Creatinine is 1.12. ASSESSMENT: 1. Syncope, rule out cardiac arrhythmia. 2. Atrial flutter paroxysmal with new onset with varying block. 3. Dehydration. 4. Subacute chronic diarrhea. 5. Troponin 1.146 indeterminate, myocardial infarction unlikely. 6. Acute on chronic renal failure possibly prerenal renal failure with dehydration. 7. Hypokalemia. 8. Dementia. 9. Change in mental status, metabolic encephalopathy chronic. 10.Hypertension. 11.Hyperlipidemia. 12.History of urinary tract infection. 13.History of renal failure. 14.History of cervical adenopathy. 15.History of postop ileus. 16.History of cataracts. 17.History of glaucoma. 18.NO CODE, NO CPR, NO VENT. RECOMMENDATIONS AND DISCUSSION: I recommend to continue current management, continue monitoring and symptomatic treatment. Continue with the IV fluids. Monitor creatinine closely. Otherwise, continue with PT, OT evaluation, possible ECF rehab. Gastroenterology evaluation regarding diarrhea. Guarded prognosis. Further recommendations to follow. MMODL / IJN: [id number] /
--- NOTE | 2018-12-29 06:29 | P.CONS ---
History of Present Illness - Reason for Consult Consult date: 12/28/18 Diarrhea - History of Present Illness This is an 88-year-old female was who presented to the hospital with symptoms primarily of dizziness and fatigue. She was noted to be in atrial fibrillation and subsequently converted to normal sinus rhythm. Patient does have known history of dementia, she also has a history of an episode of atrial fibrillation in the past. History also of hypertension. Echocardiogram with Doppler study was performed which revealed an ejection fraction of 55-60%. Moderate mitral regurgitation, moderate tricuspid regurg and a trivial pericardial effusion noted. Blood pressure this morning 114/56 with a heart rate in the 70s, normal sinus rhythm. White blood cell count 6.3, hemoglobin 11.6, platelet count 238. Sodium 141, potassium 3.5, BUN 18 and creatinine 0.9. We are asked to see her regarding chronic diarrhea. No prior colonoscopy per family. Review of Systems REVIEW OF SYSTEMS: CONSTITUTIONAL: Denies any fevers, chills, weight change or fatigue. CARDIOVASCULAR: Denies any chest pain, palpitations high or low blood pressures RESPIRATORY: Denies any shortness of breath, hemoptysis or cough. GENITOURINARY: No dysuria or hematuria. MUSCULOSKELETAL: No weakness reported. SKIN: Denies any new rashes or lesions, jaundice or pallor. PSYCHIATRIC: Denies any depression or anxiety. NEUROLOGY: Denies headache, denies any new focal deficits. EARS/NOSE/THROAT: No recent hearing change, congestion, nasal discharge or sore throat. EYES: No pain in eyes, discharge or change in vision. GASTROINTESTINAL: As per HPI. Past Medical History Past Medical History: Dementia, Eye Disorder, Hyperlipidemia, Hypertension Additional Past Medical History / Comment(s): Dementia-worsened past couple of months per daughter, incontinent of urine, possible recent UTI, 2011 cervical lymphadenopathy, post op ileus in 2012, low back pain at times, one eye with cataract (unsure laterality) and has glaucoma-unsure if bilateral or unilateral. History of Any Multi-Drug Resistant Organisms: None Reported Past Surgical History: No Surgical Hx Reported Additional Past Surgical History / Comment(s): One eye cataract removal (unsure laterality), exploratory laparotomy for teratoma tumor. Past Anesthesia/Blood Transfusion Reactions: Postoperative Nausea & Vomiting ( PONV) Past Psychological History: No Psychological Hx Reported Additional Psychological History / Comment(s): Pt currently resides alone but daughter states this is no longer working. Daughter is wanting to speak to social work/test case developer regarding discharge to a facility. Daughter states pt has increased dementia. She has not been taking her medications properly and has not been eating properly. She has also been consistently incontinent of urine. Dauhter states [facility] just started yesterday. Pt uses a cane to ambulate and her daughter just got her a walker. Smoking Status: Never smoker Past Alcohol Use History: None Reported Past Drug Use History: None Reported - Past Family History Father History Unknown: Yes Mother Family Medical History: Congestive Heart Failure (CHF), Diabetes Mellitus Medications and Allergies Home Medications Medication Instructions Recorded Confirmed Type Losartan [Cozaar] 25 mg PO DAILY tab 04/21/18 12/25/18 Rx Donepezil HCl [Aricept] 5 mg PO DAILY 12/25/18 12/25/18 History amLODIPine [Norvasc] 10 mg PO DAILY 12/25/18 12/25/18 History Allergies Allergy/AdvReac Type Severity Reaction Status Date / Time No Known Allergies Allergy Verified 12/25/18 17:28 Physical Exam Vitals: Vital Signs Temp Pulse Pulse Resp BP Pulse Ox 12/28/18 15:51 16 12/28/18 15:00 97.8 F 83 16 112/66 94 L 12/28/18 11:24 99 F 82 18 111/62 93 L 12/28/18 08:11 97.6 F 76 18 142/69 93 L 12/28/18 03:07 98.2 F 75 18 142/78 96 12/27/18 23:38 72 18 150/71 95 12/27/18 20:00 98.6 F 77 18 134/65 93 L 12/27/18 17:08 98.6 F 79 18 123/63 94 L Intake and Output 12/28/18 12/28/18 12/28/18 06:59 14:59 22:59 Intake Total 600 Balance 600 Intake: Oral 600 Other: Voiding Method Diaper Diaper Incontinent Incontinent # Voids 1 1 # Bowel Movements 1 1 Weight 55.6 kg On physical examination, patient appears comfortable in no apparent distress. HEAD: Normocephalic, atraumatic. EYES: No scleral icterus. No conjunctival injection. MOUTH: No lesions, tongue midline. NECK: Trachea midline, no gross abnormalities. CHEST: Clear to auscultation with no wheezing or rhonchi appreciated. HEART: Regular rate and rhythm. ABDOMEN: Soft, obese. Bowel sounds are positive. No organomegaly. No guarding or rigidity. EXTREMITIES: No pedal edema. SKIN: No rashes, no jaundice. NEUROLOGIC: Alert and oriented x3. No focal deficits. Results CBC & Chem 7: 12/28/18 06:12 12/28/18 06:12 Labs: Abnormal Lab Results - Last 24 Hours (Table) 12/28/18 Range/Units 06:12 BUN 24 H (7-17) mg/dL Creatinine 1.12 H (0.52-1.04) mg/dL Glucose 101 H (74-99) mg/dL Assessment and Plan Assessment: Chronic diarrhea and electrolyte imbalances on admission. Should R/O inflammatory etiology, less likely infectious causes. Plan: Will monitor closely. Consider colonoscopy this hospitalization based on her course.
[2018-12-29] MEDS: DONEPEZIL 5 MG TAB PO SCH (08:31)
[2018-12-29] MEDS: LOPERAMIDE 2 MG CAP PO SCH ×3 (08:32→21:48)
[2018-12-29] MEDS: PANTOPRAZOLE 40 MG TABLET PO SCH (08:32)
[2018-12-29] MEDS: SODIUM CHLORIDE 0.9% 1,000 ML IV SCH (08:32)
[2018-12-29] MEDS: amLODIPine 10 MG TAB PO SCH (08:32)
[2018-12-29] MEDS: LOSARTAN 25 MG TAB PO SCH (08:32)
[2018-12-29] MEDS: APIXABAN 2.5 MG TABLET PO SCH (08:32)
[2018-12-29 09:05] LABS: Basophils % (A) 1 %; Eosinophils # (A) 0.2 k/uL (0-0.7); Eosinophils % (A) 3 %; HCT 35.7 % (34.0-46.0); HGB 11.8 gm/dL (11.4-16.0); Lymphocytes # (A) 0.9 k/uL (1.0-4.8); Lymphocytes % (A) 17 %; MCH 27.5 pg (25.0-35.0); MCHC 33.1 g/dL (31.0-37.0); MCV 83.1 fL (80.0-100.0); Monocytes # (A) 0.5 k/uL (0-1.0); Monocytes % (A) 8 %; Neutrophils # (A) 3.9 k/uL (1.3-7.7); Neutrophils % (A) 70 %; Platelet Count 253 k/uL (150-450); RDW 13.9 % (11.5-15.5); WBC 5.6 k/uL (3.8-10.6)
[2018-12-29 09:21] LABS: Calcium 8.7 mg/dL (8.4-10.2)
--- NOTE | 2018-12-29 09:27 | P.PN ---
Subjective Progress Note Date: 12/29/18 Principal diagnosis: diarrhea 80-year-old female admitted with dizziness fatigue atrial fibrillation conversion to sinus rhythm underlying dementia with acute on chronic diarrhea. Electrolyte imbalances. No previous colonoscopy. Clostridium difficile negative. Yesterday BUN 24. Creatinine 1.1. Sodium 140. Potassium 3.9. Hemoglobin 12.5. White count 8.2. Denies diarrhea; nursing reports no diarrhea. Denies abdominal pain. Receiving Eliquis. Objective - Vital Signs Vital signs: Vital Signs Temp 98.2 F 12/29/18 07:18 Pulse 72 12/29/18 07:18 Resp 16 12/29/18 07:18 BP 142/74 12/29/18 07:18 Pulse Ox 98 12/29/18 07:18 Intake & Output 12/28/18 12/29/18 12/29/18 18:59 06:59 18:59 Intake Total 600 Balance 600 Intake: Oral 600 Other: Voiding Method Diaper Diaper Incontinent Incontinent # Voids 1 1 # Bowel Movements 1 - Exam General appearance: The patient is alert, oriented, in no acute distress. HET: Head is normocephalic and atraumatic. Pupils are equal and reactive. Oropharynx is clear without lesions. Neck: Supple without lymphadenopathy. Trachea midline. Heart: S1 S2. Regular rate and rhythm. Lungs: No crackles or wheezes are heard. Abdomen: Soft, nontender, nondistended with bowel sounds. No peritoneal signs. No palpable organomegaly or masses. Extremities: Normal skin color and turgor. No cyanosis, rash, ulceration, clubbing, or edema. Radial and pedal pulses are 2/4 bilaterally. Neurological: No focal deficits. Strength and sensation are grossly intact. - Labs CBC & Chem 7: 12/29/18 07:50 12/29/18 07:50 Assessment and Plan (1) Chronic diarrhea Narrative/Plan: Acute on chronic diarrhea electrolyte imbalance on admission improved possible infectious possible inflammatory no history of previous colonoscopy. Current Visit: Yes Status: Acute Code(s): K52.9 - NONINFECTIVE GASTROENTERITIS AND COLITIS, UNSPECIFIED SNOMED Code(s): 563675086 Plan: 1. Continue with current management supportive measures. Imodium BID. Monitor bowel movements. Inpatient colonoscopy not advised at this time. RTO prn; if diarrhea worsens. Assessment and plan a care discussed with Dr. Kraus
--- NOTE | 2018-12-29 12:13 | P.DS ---
Providers Date of admission: 12/25/18 19:05 Expected date of discharge: 12/29/18 Attending physician: Laverne Villarreal Consults: 12/26/18 01:20 Consult Physician Routine Consulting Provider: Jennifer Lao Consult Reason/Comments: aflutter Do you want consulting provider notified?: Yes 12/27/18 18:43 Consult Physician Routine Consulting Provider: Giancarlo Bosch Consult Reason/Comments: diarrrhea Do you want consulting provider notified?: Yes Primary care physician: Prashanth Gómez Hospital Course: Final Diagnoses: -Syncope, rule out cardiac arrhythmia -Atrial flutter, proximally new-onset with variable block -Dehydration -Subacute chronic diarrhea -Troponin 1.146, indeterminate, [place] unlikely -Acute on chronic renal failure, possibly prerenal with dehydration -Dementia Hospital course: This is an 88-year-old female admitted with syncope, cardiac arrhythmia, dehydration, chronic diarrhea and multiple other medical issues. Evaluated by cardiology and GI. Maintained on gentle IV fluid hydration. Inpatient colonoscopy not recommended at this time. Anticoagulated on Eliquis. Significant clinical improvement. Patient has been cleared by all consults. Patient is being discharged to [facility] subacute rehab in a stable condition with guarded prognosis. PHYSICAL EXAM: GENERAL: Alert and oriented X 2, pleasantly confused, no acute distress CARDIOVASCULAR: S1, S2 muffled. No murmur RESPIRATION: Breath sounds diminished in the bases. scattered rhonchi, no crackles ABDOMEN: Soft, nontender . Bowel sounds heard. NERVOUS SYSTEM: No focal deficits. Skin: no ulcer no rash The impression and plan of care has been dictated as directed. : I performed a history and examination of this patient, discussed the same with the dictator. I agree with the dictator's note ,documented as a scribe. Any additional findings or plans will be noted. Time taken: 35 minutes Patient Condition at Discharge: Stable Plan - Discharge Summary New Discharge Prescriptions: New Apixaban [Eliquis] 2.5 mg PO BID tablet Loperamide [Imodium] 2 mg PO BID #6 cap Pantoprazole [Protonix] 40 mg PO AC-BRKFST tablet.dr Zarate Losartan [Cozaar] 25 mg PO DAILY tab amLODIPine [Norvasc] 10 mg PO DAILY Donepezil HCl [Aricept] 5 mg PO DAILY Discharge Medication List Losartan [Cozaar] 25 mg PO DAILY tab 04/21/18 [Rx] Donepezil HCl [Aricept] 5 mg PO DAILY 12/25/18 [History] amLODIPine [Norvasc] 10 mg PO DAILY 12/25/18 [History] Apixaban [Eliquis] 2.5 mg PO BID tablet 12/29/18 [Rx] Loperamide [Imodium] 2 mg PO BID #6 cap 12/29/18 [Rx] Pantoprazole [Protonix] 40 mg PO AC-BRKFST tablet. 12/29/18 [Rx] Follow up Appointment(s)/Referral(s): Rico Alford MD [Primary Care Provider] - 1 Week (After discharge from subacute rehab) Giancarlo Bosch MD [STAFF PHYSICIAN] - 2 Weeks Jarocho Patel DO [STAFF PHYSICIAN] - 3 Days (While at ECF) Activity/Diet/Wound Care/Special Instructions: [place] confirm cardiology follow-up appointment prior to discharge. DIet: Activity: As tolerated CBC, BMP in 3 days Discharge Disposition: TRANSFER TO SNF/ECF
[2018-12-29] MEDS ORDERED: BISACODYL 5 MG TABLET.DR PO STA (16:07)
[2018-12-29] MEDS ORDERED: PEG 3350-NA SULF,BICARB,CL/KCL 4,000 ML BOTTLE PO ONE (16:15)
--- NOTE | 2018-12-29 19:54 | PN ---
PROGRESS NOTE DATE OF SERVICE: 12/29/2018 This 88-year-old woman who was admitted with syncope also had significant diarrhea, in history also. The family is concerned about the etiology and the recurrence of diarrhea. Gastroenterology is following the patient closely. No chest pain. No palpitations. No fever. C difficile was negative. On exam, the patient is confused. Pulse 81, blood pressure 139/74, respiration 16, temperature 99 degrees, pulse ox 91% on room air. HEENT: Conjunctivae normal. NECK: No jugular venous distention. CARDIOVASCULAR SYSTEM: S1, S2 muffled. RESPIRATORY SYSTEM: Breath sounds diminished at the bases. No rhonchi. No crackles. ABDOMEN: Soft, non-tender. NERVOUS SYSTEM: Diffusely weak. LABS: CBC within normal limits. Creatinine 0.92. ASSESSMENT: 1. Syncope. Rule out cardiac arrhythmia. 2. Atrial flutter, paroxysmal, with new onset with varying block. 3. Dehydration. 4. Subacute chronic diarrhea. 5. Troponin 0.146, indeterminate. Myocardial infarction unlikely per Cardiology. 6. Acute on chronic renal failure, possibly prerenal renal failure with dehydration. 7. Hypokalemia. 8. Dementia. 9. Change in mental status, metabolic encephalopathy, chronic. 10.Hypertension. 11.Hyperlipidemia. 12.History of urinary tract infection. 13.History of renal failure. 14.History of cervical adenopathy. 15.History of postoperative ileus. 16.History of cataracts. 17.History of glaucoma. 18.NO CODE, NO CPR, NO VENT. RECOMMENDATIONS AND DISCUSSION: I recommend to continue current medications, continue with symptomatic treatment. I will request Dr. Kraus for close consultation and possible endoscopies. Otherwise, continue the rest of the symptomatic treatment. Prognosis guarded. PT/OT evaluation, possible ECF rehab once the patient is stabilized. Further recommendations to follow. MMODL / IJN: [id number] /
[2018-12-30] MEDS: SODIUM CHLORIDE 0.9% 1,000 ML IV SCH (03:12)
[2018-12-30] MEDS ORDERED: LIDOCAINE 1% 20 ML VIAL (10MG/ML) FOR IV START INTRADERMA PRN (07:49)
[2018-12-30] MEDS ORDERED: HYDROmorphone 0.5 MG/0.5 ML SYRINGE IVP PRN (07:49)
[2018-12-30] MEDS: LOSARTAN 25 MG TAB PO SCH (08:25)
[2018-12-30] MEDS: PANTOPRAZOLE 40 MG TABLET PO SCH (08:25)
[2018-12-30] MEDS: amLODIPine 10 MG TAB PO SCH (08:25)
[2018-12-30] MEDS: DONEPEZIL 5 MG TAB PO SCH (08:26)
[2018-12-30] MEDS: LACTATED RINGERS 1,000 ML IV SCH (08:26)
[2018-12-30 10:15] LABS: Calcium 8.6 mg/dL (8.4-10.2)
[2018-12-30 10:17] LABS: Basophils % (A) 1 %; Eosinophils # (A) 0.1 k/uL (0-0.7); Eosinophils % (A) 1 %; HCT 35.9 % (34.0-46.0); HGB 11.5 gm/dL (11.4-16.0); Lymphocytes % (A) 22 %; MCV 84.1 fL (80.0-100.0); Monocytes # (A) 0.5 k/uL (0-1.0); Monocytes % (A) 11 %; Neutrophils # (A) 2.8 k/uL (1.3-7.7); Neutrophils % (A) 62 %; Platelet Count 251 k/uL (150-450); RBC 4.27 m/uL (3.80-5.40); RDW 14.3 % (11.5-15.5); WBC 4.5 k/uL (3.8-10.6)
[2018-12-30] MEDS ORDERED: BISACODYL 5 MG TABLET.DR PO ONE (11:00)
[2018-12-30] MEDS ORDERED: MAGNESIUM CITRATE 296 ML BOTTLE PO ONE (13:45)
[2018-12-30] MEDS ORDERED: PEG 3350-NA SULF,BICARB,CL/KCL 4,000 ML BOTTLE PO ONE (15:00)
--- NOTE | 2018-12-30 16:24 | PN ---
PROGRESS NOTE DATE OF SERVICE: 12/30/2018 This 88-year-old woman who was admitted with syncope also had atrial flutter/fibrillation. Patient also had dehydration. The family is concerned about recurrent diarrhea. Gastroenterology is following the patient closely for possible endoscopies, especially colonoscopy. No chest pain. No palpitation. On examination, patient is confused. Pulse 103, blood pressure 134/80, respiration 16, temperature 98.4, pulse ox 93% on room air. HEENT: Conjunctivae normal. NECK: No jugular venous distention. CARDIOVASCULAR SYSTEM: S1, S2 muffled. RESPIRATORY SYSTEM: Breath sounds diminished at the bases. A few scattered rhonchi. ABDOMEN: Soft, non-tender. NERVOUS SYSTEM: No focal deficit. LABS: CBC within normal limits. Sodium 136, potassium 4. ASSESSMENT: 1. Syncope. Rule out cardiac arrhythmia. 2. Atrial flutter, paroxysmal, new onset, with varying block, present on admission. 3. Dehydration. 4. Subacute chronic diarrhea. 5. Troponin 0.146, indeterminate. Myocardial infarction unlikely per Cardiology. 6. Acute on chronic renal failure, possibly prerenal renal failure with dehydration. 7. Hypokalemia. 8. Dementia. 9. Change in mental status, metabolic encephalopathy, chronic. 10.Hypertension. 11.Hyperlipidemia. 12.History of urinary tract infection. 13.History of renal failure. 14.History of cervical adenopathy. 15.History of postoperative ileus. 16.History of cataracts. 17.History of glaucoma. 18.NO CODE, NO CPR, NO VENT. RECOMMENDATIONS AND DISCUSSION: I recommend to continue current medications, continue with the monitoring, symptomatic treatment. Otherwise, follow closely with Gastroenterology; possible endoscopies. Repeat labs ordered. Possibly ECF rehab once the gastroenterology workup is completed. Further recommendations to follow. MMODL / IJN: [id number] /
--- NOTE | 2018-12-30 16:55 | P.PN ---
Subjective Progress Note Date: 12/30/18 Principal diagnosis: diarrhea 80-year-old female admitted with dizziness fatigue atrial fibrillation conversion to sinus rhythm underlying dementia with acute on chronic diarrhea. Electrolyte imbalances. No previous colonoscopy. Clostridium difficile negative. Family requesting colonosocpy evaulation. Nursing reports improvement in diarrhea last night. Denies abdominal pain. Anticoagulation on hold. Objective - Vital Signs Vital signs: Vital Signs Temp 98.4 F 12/30/18 14:30 Pulse 103 H 12/30/18 14:30 Resp 16 12/30/18 14:30 BP 134/80 12/30/18 14:30 Pulse Ox 93 L 12/30/18 14:30 Intake & Output 12/29/18 12/30/18 12/30/18 18:59 06:59 18:59 Intake Total 742 172 9812 Balance 000 706 2994 Weight 55.6 kg Intake: Oral 899 057 8823 Other: Voiding Method Diaper Diaper Diaper Incontinent Incontinent Incontinent # Voids 2 2 2 # Bowel Movements 1 1 3 - Exam General appearance: The patient is alert, oriented, in no acute distress. HET: Head is normocephalic and atraumatic. Pupils are equal and reactive. Oropharynx is clear without lesions. Neck: Supple without lymphadenopathy. Trachea midline. Heart: S1 S2. Regular rate and rhythm. Lungs: No crackles or wheezes are heard. Abdomen: Soft, nontender, nondistended with bowel sounds. No peritoneal signs. No palpable organomegaly or masses. Extremities: Normal skin color and turgor. No cyanosis, rash, ulceration, clubbing, or edema. Radial and pedal pulses are 2/4 bilaterally. Neurological: No focal deficits. Strength and sensation are grossly intact. - Labs CBC & Chem 7: 12/30/18 09:03 12/30/18 09:03 Labs: Abnormal Lab Results - Last 24 Hours (Table) 12/29/18 12/30/18 Range/Units 07:50 09:03 Sodium 136 L (137-145) mmol/L BUN 21 H (7-17) mg/dL Glucose 113 H (74-99) mg/dL C-Reactive Protein 32.7 H (<10.0) mg/L Assessment and Plan (1) Chronic diarrhea Narrative/Plan: Acute on chronic diarrhea electrolyte imbalance on admission improved possible infectious possible inflammatory no history of previous colonoscopy. Current Visit: Yes Status: Acute Code(s): K52.9 - NONINFECTIVE GASTROENTERITIS AND COLITIS, UNSPECIFIED SNOMED Code(s): 846906002 (2) Atrial flutter Current Visit: Yes Status: Acute Code(s): I48.92 - UNSPECIFIED ATRIAL FLUTTER SNOMED Code(s): 2633563 (3) Dementia Current Visit: No Status: Acute Code(s): F03.90 - UNSPECIFIED DEMENTIA WITHOUT BEHAVIORAL DISTURBANCE SNOMED Code(s): 71373334 Plan: 1. Colonoscopy tomorrow. 2. Stool studies requested and pending. Celiac panel. Assessment and plan of care discussed with Dr. Kraus
[2018-12-31] MEDS: SODIUM CHLORIDE 0.9% 1,000 ML IV SCH (00:43)
[2018-12-31 07:39] VITALS: BP 151/78; PULSE 68; RESP 16; TEMP 97.8
[2018-12-31] MEDS: amLODIPine 10 MG TAB PO SCH (08:01)
[2018-12-31] MEDS: DONEPEZIL 5 MG TAB PO SCH (08:01)
[2018-12-31] MEDS: LOSARTAN 25 MG TAB PO SCH (08:01)
[2018-12-31] MEDS: PANTOPRAZOLE 40 MG TABLET PO SCH (08:01)
[2018-12-31] MEDS: LACTATED RINGERS 1,000 ML IV SCH (08:02)
[2018-12-31 08:20] LABS: Basophils % (A) 1 %; Eosinophils % (A) 1 %; HCT 38.3 % (34.0-46.0); HGB 12.5 gm/dL (11.4-16.0); Lymphocytes # (A) 0.7 k/uL (1.0-4.8); Lymphocytes % (A) 16 %; MCH 27.4 pg (25.0-35.0); MCHC 32.5 g/dL (31.0-37.0); MCV 84.1 fL (80.0-100.0); Mean Platelet Volume 7.9; Monocytes # (A) 0.5 k/uL (0-1.0); Monocytes % (A) 12 %; Neutrophils # (A) 3.1 k/uL (1.3-7.7); Neutrophils % (A) 69 %; Platelet Count 277 k/uL (150-450); RBC 4.55 m/uL (3.80-5.40); RDW 14.2 % (11.5-15.5); WBC 4.6 k/uL (3.8-10.6)
[2018-12-31 08:28] LABS: Calcium 8.6 mg/dL (8.4-10.2); Potassium 4.3 mmol/L (3.5-5.1)
[2018-12-31] MEDS ORDERED: LOPERAMIDE 2 MG CAP PO STA (08:51)
[2018-12-31] MEDS ORDERED: APIXABAN 2.5 MG TABLET PO SCH (10:30)
--- NOTE | 2018-12-31 11:11 | P.DS ---
Providers Date of admission: 12/25/18 19:05 Expected date of discharge: 12/31/18 Attending physician: Laverne tolentino Consults: 12/26/18 01:20 Consult Physician Routine Consulting Provider: Jennifer Lao Consult Reason/Comments: aflutter Do you want consulting provider notified?: Yes 12/27/18 18:43 Consult Physician Routine Consulting Provider: Giancarlo Bosch Consult Reason/Comments: diarrrhea Do you want consulting provider notified?: Yes Primary care physician: Prashanth G[facility] Hospital Course: Final Diagnoses: -Syncope, rule out cardiac arrhythmia -Atrial flutter with variable block.Per further evaluation by cardiology Paroximal afib.Converted to SR,in a patient with history of prior episode Afib. -Dehydration, improving -Subacute chronic diarrhea -Troponin 1.146, indeterminate, [place] unlikely -Acute renal failure, possibly prerenal with dehydration -Dementia -Hypertension -Moderate Mitral and tricuspid Regurgitation Hospital course: This is an 88-year-old female admitted with syncope, cardiac arrhythmia, dehydration, chronic diarrhea and multiple other medical issues. Evaluated by cardiology and GI. Echo reported normal LV function with EF 55-60% , Moderate Mitral and tricuspid Regurgitation.Maintained on gentle IV fluid hydration, imodium.Colonscopy cancelled as patient unable to tolerated prep. Anticoagulated on Eliquis. Significant clinical improvement. Patient has been cleared by all consults iglesias discharge. Patient is being discharged to [facility] subacute rehab in a stable condition with guarded prognosis. EXAM: GENERAL: Alert and oriented X 2, pleasantly confused, no acute distress CARDIOVASCULAR: S1, S2 muffled. Systolic murmur RESPIRATION: Breath sounds diminished in the bases. ABDOMEN: Soft, nontender .Positive Bowel sounds. NERVOUS SYSTEM: No focal deficits. The impression and plan of care has been dictated as directed. : I performed a history and examination of this patient, discussed the same with the dictator. I agree with the dictator's note ,documented as a scribe. Any additional findings or plans will be noted. Time taken: 35 minutes Patient Condition at Discharge: Stable Plan - Discharge Summary New Discharge Prescriptions: New Apixaban [Eliquis] 2.5 mg PO BID tablet Loperamide [Imodium] 2 mg PO BID #6 cap Pantoprazole [Protonix] 40 mg PO AC-BRKFST tablet.dr Zarate Losartan [Cozaar] 25 mg PO DAILY tab amLODIPine [Norvasc] 10 mg PO DAILY Donepezil HCl [Aricept] 5 mg PO DAILY Discharge Medication List Losartan [Cozaar] 25 mg PO DAILY tab 04/21/18 [Rx] Donepezil HCl [Aricept] 5 mg PO DAILY 12/25/18 [History] amLODIPine [Norvasc] 10 mg PO DAILY 12/25/18 [History] Apixaban [Eliquis] 2.5 mg PO BID tablet 12/29/18 [Rx] Loperamide [Imodium] 2 mg PO BID #6 cap 12/29/18 [Rx] Pantoprazole [Protonix] 40 mg PO AC-BRKFST tablet. 12/29/18 [Rx] Follow up Appointment(s)/Referral(s): Giancarlo Bosch MD [STAFF PHYSICIAN] - 2 Weeks Rico Alford MD [Primary Care Provider] - 1 Week (After discharge from subacute rehab) Jarocho Patel DO [STAFF PHYSICIAN] - 3 Days (While at ECF) Activity/Diet/Wound Care/Special Instructions: [facility] confirm cardiology follow-up appointment prior to discharge. Imodium as per GI DIet: Activity: As tolerated CBC, BMP in 3 days Discharge Disposition: TRANSFER TO SNF/ECF
[2018-12-31] MEDS: LOPERAMIDE 2 MG CAP PO SCH ×2 (11:30→11:40)
[2018-12-31 11:50] LABS: Gliadin AB IgA, Unit 0.2 U/mL
--- NOTE | 2018-12-31 14:29 | P.PN ---
Subjective Progress Note Date: 12/31/18 Principal diagnosis: diarrhea Colonoscopy canceled secondary to patient unable to tolerate prep. Daughter at bedside. Plan a care was discussed and she agrees to postpone colonoscopy for now. Patient is eating. Afebrile. Imodium restarted. No reports of abdominal pain or bleeding. No diarrhea this morning. Objective - Vital Signs Vital signs: Vital Signs Temp 97.8 F 12/31/18 07:37 Pulse 68 12/31/18 07:37 Resp 16 12/31/18 07:37 BP 151/78 12/31/18 07:37 Pulse Ox 96 12/31/18 07:37 Intake & Output 12/30/18 12/31/18 12/31/18 18:59 06:59 18:59 Intake Total 1080 Balance 1080 Intake: Oral 1080 Other: Voiding Method Diaper Diaper Diaper Incontinent Incontinent Incontinent # Voids 2 1 # Bowel Movements 3 4 - Exam General appearance: The patient is alert, dementia. HET: Head is normocephalic and atraumatic. Pupils are equal and reactive. Oropharynx is clear without lesions. Neck: Supple without lymphadenopathy. Trachea midline. Heart: S1 S2. Regular rate and rhythm. Lungs: No crackles or wheezes are heard. Abdomen: Soft, nontender, nondistended with bowel sounds. No peritoneal signs. No palpable organomegaly or masses. Extremities: Normal skin color and turgor. No cyanosis, rash, ulceration, clubbing, or edema. Radial and pedal pulses are 2/4 bilaterally. Neurological: No focal deficits. Strength and sensation are grossly intact. - Labs CBC & Chem 7: 12/31/18 07:39 12/31/18 07:39 Labs: Abnormal Lab Results - Last 24 Hours (Table) 12/31/18 12/31/18 Range/Units 07:39 07:39 Lymphocytes # 0.7 L (1.0-4.8) k/uL BUN 21 H (7-17) mg/dL Assessment and Plan (1) Chronic diarrhea Narrative/Plan: Acute on chronic diarrhea electrolyte imbalance on admission improved possible infectious possible inflammatory no history of previous colonoscopy. Current Visit: Yes Status: Acute Code(s): K52.9 - NONINFECTIVE GASTROENTERITIS AND COLITIS, UNSPECIFIED SNOMED Code(s): 480539033 (2) Atrial flutter Current Visit: Yes Status: Acute Code(s): I48.92 - UNSPECIFIED ATRIAL FLUTTER SNOMED Code(s): 1744533 (3) Dementia Current Visit: No Status: Acute Code(s): F03.90 - UNSPECIFIED DEMENTIA WITHOUT BEHAVIORAL DISTURBANCE SNOMED Code(s): 30569597 Plan: 1. Agreeable for discharge return to office in 2 weeks. Imodium 2 mg 4 times a day prescription provided. Diet as tolerated. Plan of care was discussed with daughter she is agreeable. Outpatient colonoscopy will be discussed if necessary in follow-up visit. Assessment and plan a care discussed with Dr. Kraus
== END 2018-12-31 15:56 | disposition home or self-care (01) | DRG 308 ==
LOC: EC 16:00 → 3SCARD 19:05 → 4MS4W 12-28 14:46
PROVIDERS: ADMIT Internal Medicine; ATTEND Internal Medicine
DX: I48.0 Paroxysmal atrial fibrillation (principal); G93.41 Metabolic encephalopathy; N17.9 Acute kidney failure, unspecified; N39.0 Urinary tract infection, site not specified; I48.92 Unspecified atrial flutter; E78.5 Hyperlipidemia, unspecified; E86.0 Dehydration; E87.6 Hypokalemia; F03.90 Unspecified dementia, unspecified severity, without behavioral disturbance, psychotic disturbance, mood disturbance, and anxiety; H40.9 Unspecified glaucoma; I08.1 Rheumatic disorders of both mitral and tricuspid valves; I12.9 Hypertensive chronic kidney disease with stage 1 through stage 4 chronic kidney disease, or unspecified chronic kidney disease; K52.9 Noninfective gastroenteritis and colitis, unspecified; N18.9 Chronic kidney disease, unspecified; Z87.440 Personal history of urinary (tract) infections; Z79.01 Long term (current) use of anticoagulants; Z79.899 Other long term (current) drug therapy; Z82.49 Family history of ischemic heart disease and other diseases of the circulatory system; Z83.3 Family history of diabetes mellitus; Z91.128 Patient's intentional underdosing of medication regimen for other reason; Z66 Do not resuscitate; Z60.2 Problems related to living alone; Z98.49 Cataract extraction status, unspecified eye; R74.8 Abnormal levels of other serum enzymes
CPT/HCPCS: 36415; 71046; 80048; 80053; 82550; 82553; 83516; 83735; 84132; 84484; 85025; 85610; 85652; 85730; 86140; 87324; 93005; 93306; 96361; 96365; 96366; 96368; 96375; 96376; 99285